=== PATIENT | male | born 1960 | race Caucasian/White ===

== ENCOUNTER 2022-03-31 13:23 | Emergency (ER) | payer MEDICARE, BC, SELFPAY ==
[2022-03-31 13:25] VITALS: BP 115/87; PULSE 58; RESP 16; TEMP 36.6; O2SAT 88; BMI 35.9
--- NOTE | 2022-03-31 13:36 | CRLHL7_ITS ---
For Patients: As a result of the Century Cures Act, medical imaging exams and procedure reports are released immediately into your electronic medical record. You may view this report before your referring provider. If you have questions, please contact your health care provider. Indication : Trauma. Technique : CT of the brain without intravenous contrast. Comparison: None relevant available at the time of interpretation. Findings: No acute blurring of the fernandes-white differentiation. There is no intracranial hemorrhage. The ventricles are proportionate to the cerebral sulci. The 4th ventricle is midline. Basal cisterns appear patent. Suggestion of an extra-axial CSF attenuating possible cyst along the right cerebellum and brainstem. Slight leftward displacement of the cerebellum and brainstem. Mild parenchymal volume loss. There is mild patchy periventricular hypodensity, favored to represent chronic ischemic microvascular disease. There is no intracranial mass, mass effect or midline shift identified. No depressed calvarial fracture. Small parietal superficial scalp contusion near the vertex. Mild paranasal sinus mucosal disease. Impression: 1. No acute intracranial process. 2. Small parietal superficial scalp contusion near the vertex. 3. Mild chronic ischemic microvascular disease. 4. Suggestion of an extra-axial CSF attenuating possible cyst along the right cerebellum and brainstem. Differential considerations include arachnoid cyst and routine nonemergent MRI may be helpful for confirmation. Please note that all CT scans at this facility use dose modulation, iterative reconstruction, and/or weight-based dosing when appropriate to reduce radiation dose to as low as reasonably achievable. Dictated by Paul Owens MD @ 03/31/2022 2:22:36 PM (Electronically Signed)
[2022-03-31 14:01] VITALS: BP 94/60; PULSE 66; RESP 22; O2SAT 94
--- NOTE | 2022-03-31 14:11 | ED.FALL ---
HPI - Fall General Time Seen by Provider: 14:10 Date Seen: 03/31/22 Chief Complaint: Fall/Minor Trauma Stated Complaint: FALL Time Seen by Provider: 03/31/22 13:41 History of Present Illness HPI Narrative: This 61-year-old male comes in by ambulance because of a fall that occurred at home. He states that he had too much alcohol to drink and tripped falling forward. He hit his head on the ground but did not have loss of consciousness. He does not report a headache. Someone called the ambulance because he was unable to get up under his own strength. He does not report any other injury and does not have a headache. Related Data Home Medications Medication Instructions Recorded Confirmed digoxin 250 mcg (0.25 mg) tablet mcg 03/31/22 escitalopram oxalate 10 mg tablet mg 03/31/22 escitalopram oxalate 20 mg tablet mg 03/31/22 lisinopril 10 mg tablet mg 03/31/22 metoprolol succinate 100 mg mg PO 03/31/22 tablet,extended release 24 hr rivaroxaban 20 mg tablet (Xarelto) mg 03/31/22 trazodone 100 mg tablet mg 03/31/22 Allergies Allergy/AdvReac Type Severity Reaction Status Date / Time No Known Drug Allergies Allergy Verified 03/31/22 13:32 Review of Systems Status of ROS: Reports: 10 or more systems reviewed and unremarkable except as noted in History and below Narrative: Constitutional: No fevers, no weight gain or loss. Eyes: No discharge. No vision changes. HENT: No congestion, no sore throat, no ear pain. Cardiovascular: No chest pain, no palpitations. Respiratory: No shortness of breath, no wheezes, no cough. Gastrointestinal: No abdominal pain, no vomiting, no diarrhea. Genitourinary: No dysuria, no hematuria. Musculoskeletal: Normal range of motion. Skin: No rashes, no pruritis. Neurological: No dizziness, weakness, sensory change, speech change. Endo/Heme/Allergies: No bruising or bleeding. No polydipsia. Pysch: no suicidality, no anxiety, no insomnia. He admits to taking recent alcohol excessively. All other systems reviewed and are negative. PFSH PFS Social History Smoking Status: Never smoker Do you use any of these nicotine containing products: None Second hand tobacco smoke exposure: No How often do you have a drink containing alcohol: 2-3 times a week How many standard drinks containing alcohol do you have on a typical day: 3 or 4 How often do you have six or more drinks on one occasion: Monthly AUDIT-C Alcohol total score: 6 Non-prescribed substance use: denies use service: No Exam Narrative: Exam Narrative: Constitutional: Well-developed, well-nourished, no acute distress. HEENT: Mild erythema without abrasion or swelling on the forehead. No other sign of injury. Neck: Normal range of motion. Nontender. Supple. Heart: Regular. No murmurs. Normal rate. Intact distal pulses. Lungs: Clear to auscultation. No chest discomfort. No wheezes, rhonchi, or rales. Abdomen: Normal bowel sounds. Nontender. No rebound tenderness. Genitalia: Deferred. Back: No midline tenderness. Normal range of motion. Extremities: Normal range of motion. Very superficial abrasions on both knees. Skin: Intact. No rash. Warm. No erythema or pallor. Neurologic: No altered sensation. No weakness. Alert and oriented. No facial asymmetry. Tongue is midline. Binder Folder Operator strength is equal bilaterally. [id number] is normal. Leg strength is equal bilaterally. Psychiatric: No suicidality. No anxiety or depression. No insomnia. Nursing notes and vitals signs are reviewed. Const: Vital Signs, click to edit/add: Vital Signs - 24 hr 03/31/22 13:25 03/31/22 14:01 Temperature 97.8 F Pulse Rate [Pulse Oximeter] 66 Pulse Rate [Right Pulse Oximeter] 58 L Respiratory Rate 16 22 Blood Pressure [Ri ght Upper Arm] 115/87 94/60 Pulse Oximetry 88 94 Course Vital Signs Vital signs: Initial Vital Signs Temperature 97.8 F 03/31/22 13:25 Temperature Source Temporal Artery Scan 03/31/22 13:25 Pulse Rate 58 L 03/31/22 13:25 Respiratory Rate 16 03/31/22 13:25 Blood Pressure 115/87 03/31/22 13:25 Blood Pressure Mean 96 03/31/22 13:25 Blood Pressure Position Supine 03/31/22 13:25 Pulse Oximetry 88 03/31/22 13:25 Oxygen Delivery Method 03/31/22 13:25 Vital Signs Temperature 97.8 F 03/31/22 13:25 Pulse Rate 58 L 03/31/22 13:25 Respiratory Rate 16 03/31/22 13:25 Blood Pressure 115/87 03/31/22 13:25 Pulse Oximetry 88 03/31/22 13:25 Temperature 97.8 F 03/31/22 13:25 Pulse Rate 66 03/31/22 14:01 Respiratory Rate 22 03/31/22 14:01 Blood Pressure 94/60 03/31/22 14:01 Pulse Oximetry 94 03/31/22 14:01 MDM - Fall MDM Narrative Medical decision making narrative: This patient comes in by ambulance because he fell and had difficulty getting up. He had excessive amount of alcohol recently. He is on blood thinners. He does not complain of any headache or neck pain. He does not have any injury. His neurologic exam is completely normal. CT scan of the head is ordered and returns with normal results and no sign of intracranial hemorrhage or fracture. There is an incidental finding of some possible increased cerebral spinal fluid in the cerebellar region. This was brought to notice of the patient to at some point could have further evaluation with an MRI. This patient is able to get up and ambulate and wishes to return home. Imaging Data CT scan - head: Radiologist's impression: 1. No acute intracranial process. 2. Small parietal superficial scalp contusion near the vertex. 3. Mild chronic ischemic microvascular disease. 4. Suggestion of an extra-axial CSF attenuating possible cyst along the right cerebellum and brainstem. Differential considerations include arachnoid cyst and routine nonemergent MRI may be helpful for confirmation. Discharge Plan Discharge Clinical Impression: Contusion of forehead Condition: Stable Instructions: Contusion in Adults (ED) Additional Instructions: Forehead contusion from a fall. Increase activity as tolerated. Follow up with MD or return if worsening symptoms happen. Activity Level: Activity as Tolerated Prescriptions: No Action metoprolol succinate 100 mg tablet extended release 24 hr PO 0RF digoxin 250 mcg (0.25 mg) tablet 0RF trazodone 100 mg tablet 0RF lisinopril 10 mg tablet 0RF escitalopram oxalate 10 mg tablet 0RF escitalopram oxalate 20 mg tablet 0RF Xarelto 20 mg tablet 0RF Follow Up/Referrals: Rolf Stauffer MD [Primary Care Provider] - Stand Alone Forms: [employer] Info Instructions
[2022-03-31 14:30] VITALS: RESP 20; O2SAT 92
--- NOTE | 2022-03-31 14:51 | ED.NURSE ---
did not want to be here. got up and walked out of his room. stated that the dr told him he was able to go home if he could walk. states that he feels fine and has called for a ride. is very grateful for us helping him.
== END 2022-03-31 14:50 ==
LOC: ED 14:56
PROVIDERS: Emergency Provider Emergency Medicine Emergency Medical Services; PCP Family Medicine
DX: S00.93XA Contusion of unspecified part of head, initial encounter (principal); W01.10XA Fall on same level from slipping, tripping and stumbling with subsequent striking against unspecified object, initial encounter; F10.10 Alcohol abuse, uncomplicated
CPT/HCPCS: 70450; 93005; 99284; 99285

== ENCOUNTER 2022-09-02 08:53 | Outpatient (CLI) | payer MEDICARE, BC, SELFPAY | END 2022-09-02 08:54 | disposition home or self-care (01) | LOC: AMB 09-09 08:07 | PROVIDERS: PCP Family Medicine; Visit Provider Family Medicine | DX: F10.239 Alcohol dependence with withdrawal, unspecified (principal); S39.92XA Unspecified injury of lower back, initial encounter; W18.30XA Fall on same level, unspecified, initial encounter; Y92.039 Unspecified place in apartment as the place of occurrence of the external cause | CPT/HCPCS: A0425; A0427 ==

== ENCOUNTER 2022-09-02 09:31 | Inpatient (IN) | payer MEDICARE, BC, SELFPAY ==
[2022-09-02] VITALS (49 sets, daily range): BP systolic 102–201; BP diastolic 64–182; PULSE 86–217; RESP 16–24; TEMP 36.1–36.4; O2SAT 80–100; BMI 36.8; BMI 36.3
--- NOTE | 2022-09-02 09:40 | CRLHL7_ITS ---
For Patients: As a result of the Century Cures Act, medical imaging exams and procedure reports are released immediately into your electronic medical record. You may view this report before your referring provider. If you have questions, please contact your health care provider. INDICATION: fall. TECHNIQUE: CT lumbar spine without contrast. COMPARISON: CT chest May 11, 2021 FINDINGS: Vertebrae: The bones are osteopenic. Slight levocurvature of the upper lumbar spine. No new compression deformity is seen. Chronic L1 compression deformity is again demonstrated with slightly more pronounced height loss. Degenerative changes of the SI joints with partial ankylosis on the left. Discs and facet joints: Advanced multilevel intervertebral disc space narrowing facet arthropathy. Partial osseous fusion of the anterior and posterior elements at L2-L3. Extraspinal findings: Prevertebral soft tissues appear unremarkable. Retroperitoneal findings discussed on same day CT abdomen pelvis. IMPRESSION: Chronic L1 compression deformity is again demonstrated with slightly more pronounced height loss. No new compression deformity is identified. Please note that all CT scans at this facility use dose modulation, iterative reconstruction, and/or weight-based dosing when appropriate to reduce radiation dose to as low as reasonably achievable. Dictated by Feng Tamayo MD @ 09/02/2022 11:18:19 AM (Electronically Signed)
--- NOTE | 2022-09-02 09:40 | CRLHL7_ITS ---
For Patients: As a result of the Century Cures Act, medical imaging exams and procedure reports are released immediately into your electronic medical record. You may view this report before your referring provider. If you have questions, please contact your health care provider. INDICATION: fall TECHNIQUE: CT chest, abdomen and pelvis acquired without IV contrast. COMPARISON: CT chest May 11, 2021 FINDINGS: CHEST: Cardiovascular structures: Heart size is mildly enlarged. Thoracic aorta and main pulmonary artery are normal in caliber. Coronary artery and vascular calcifications. Mitral annular calcifications. Mediastinum and amanda: No mass or adenopathy. Patchy opacity at the right lung base favors atelectasis or scarring over consolidation. Lungs and pleura: Opacity at the right lung base favors atelectasis or scarring over consolidation. No effusion or pneumothorax. Chest wall and axilla: No mass or adenopathy. Bones: Left anterior 8th and 9th rib fractures which are new when compared 05/11/2021 but appear at least subacute as there does appear to be some sclerosis which likely indicates healing. Right anterior 4th through 7th rib fractures which appear acute/subacute and are new when compared May 11, 2021. ABDOMEN AND PELVIS: Liver: Unremarkable. Gallbladder and bile ducts: Unremarkable. Pancreas: Unremarkable. Spleen: Unremarkable. Adrenal glands: Unremarkable. Kidneys: Simple renal cyst at the upper pole of the left kidney measuring 3.5 cm. No hydronephrosis. Unremarkable appearing bladder. GI tract: Unremarkable. Vascular structures: Abdominal aorta of normal caliber with mild to moderate atherosclerotic calcifications. Lymph nodes: Unremarkable. Miscellaneous: Unremarkable. No free air or significant free fluid. Pelvic Organs: Unremarkable. Bones: Chronic compression deformity at L1 with increased height loss. Left hip arthroplasty. Subcutaneous soft tissue swelling overlying the left hip which may represent scarring or contusion. IMPRESSION: Left anterior 8th and 9th rib fractures which are new when compared 05/11/2021 but appear at least subacute as there does appear to be some sclerosis which likely indicates healing. Right anterior 4th through 7th rib fractures which appear acute/subacute and are new when compared May 11, 2021. Chronic compression deformity at L1 with increased height loss. Patchy opacity at the right lung base favors atelectasis or scarring over consolidation. Lack of IV contrast limits evaluation of the sonogram parenchyma and vasculature. Given these limitations there is no other evidence of acute injury to the chest, abdomen, or pelvis. Please note that all CT scans at this facility use dose modulation, iterative reconstruction, and/or weight-based dosing when appropriate to reduce radiation dose to as low as reasonably achievable. Dictated by Feng Tamayo MD @ 09/02/2022 11:53:40 AM (Electronically Signed)
--- NOTE | 2022-09-02 09:40 | CRLHL7_ITS ---
For Patients: As a result of the Century Cures Act, medical imaging exams and procedure reports are released immediately into your electronic medical record. You may view this report before your referring provider. If you have questions, please contact your health care provider. INDICATION: Trauma, fall. TECHNIQUE: CT thoracic spine without contrast. COMPARISON: None. FINDINGS: Vertebrae: Alignment is normal. There are no fractures or suspicious bony lesions. Discs and facet joints: Mild multilevel degenerative space narrowing facet arthropathy. Anterior bridging osteophytosis of the lower thoracic spine on the right. Extraspinal findings: Prevertebral soft tissues, visualized airway, and visualized lungs are unremarkable. Low-density lesion at the upper pole of the left kidney measuring 3.5 cm which cannot be characterized as a simple renal cyst on this exam. Recommend ultrasound to further evaluate. IMPRESSION: No evidence of thoracic spine fracture. Mild multilevel joint spondylosis. Low-density lesion at the upper pole of the left kidney measuring 3.5 cm which cannot be characterized as a simple renal cyst on this exam. Recommend ultrasound to further evaluate. Please note that all CT scans at this facility use dose modulation, iterative reconstruction, and/or weight-based dosing when appropriate to reduce radiation dose to as low as reasonably achievable. Dictated by Feng Tamayo MD @ 09/02/2022 11:12:59 AM (Electronically Signed)
--- NOTE | 2022-09-02 09:40 | CRLHL7_ITS ---
For Patients: As a result of the Century Cures Act, medical imaging exams and procedure reports are released immediately into your electronic medical record. You may view this report before your referring provider. If you have questions, please contact your health care provider. INDICATION: Fall TECHNIQUE: Head CT without contrast. COMPARISON: CT head April 22, 2021 FINDINGS: There are mild nonspecific low attenuation white matter changes consistent with chronic microvascular disease. Mild global parenchymal volume loss with ex vacuo dilatation of the ventricles. No sign of intracranial hemorrhage, or midline shift. No extra-axial fluid collection. Again suggested area of an extra-axial CSF attenuating possible cyst along the right cerebellum and brainstem. Slight leftward displacement of the cerebellum and brainstem. The visualized paranasal sinuses and mastoid air cells demonstrate no acute or significant findings. The visualized orbits are grossly unremarkable. No skull fractures. IMPRESSION: No evidence of acute intracranial abnormality on this unenhanced CT. Mild chronic microvascular ischemic changes and mild global parenchymal volume loss. Again suggested area of an extra-axial CSF attenuating possible cyst along the right cerebellum and brainstem. Slight leftward displacement of the cerebellum and brainstem. Findings favors arachnoid cyst and routine non emergent MRI again could be considered to confirm. Please note that all CT scans at this facility use dose modulation, iterative reconstruction, and/or weight-based dosing when appropriate to reduce radiation dose to as low as reasonably achievable. Dictated by Feng Tamayo MD @ 09/02/2022 10:45:51 AM (Electronically Signed)
--- NOTE | 2022-09-02 09:40 | CRLHL7_ITS ---
For Patients: As a result of the Century Cures Act, medical imaging exams and procedure reports are released immediately into your electronic medical record. You may view this report before your referring provider. If you have questions, please contact your health care provider. INDICATION: Fall TECHNIQUE: CT cervical spine without contrast. COMPARISON: None. FINDINGS: Vertebrae: Straightening of expected cervical lordosis. There are no fractures or suspicious bony lesions. Discs and facet joints: There are diffuse degenerative changes in the disc spaces and facet joints. Grade 1 anterolisthesis of C2 on C3 and C5-C6. Mild retrolisthesis of C3 on C4. Extraspinal findings: Paraspinous soft tissues are unremarkable. Scattered secretions noted within the oropharynx and airway. IMPRESSION: 1. No sign of acute cervical spine fracture. 2. Multilevel degenerative spondylosis. Grade 1 anterolisthesis of C2 on C3 and C5 on C6. Mild retrolisthesis of C3 on C4. Please note that all CT scans at this facility use dose modulation, iterative reconstruction, and/or weight-based dosing when appropriate to reduce radiation dose to as low as reasonably achievable. Dictated by Feng Tamayo MD @ 09/02/2022 10:50:42 AM (Electronically Signed)
--- NOTE | 2022-09-02 09:49 | ED.GENADULT ---
HPI - General Adult General Chief complaint: Weakness Stated complaint: Weakness Time Seen by Provider: 09/02/22 09:40 Source: patient Mode of arrival: EMS Limitations: altered mental status History of Present Illness HPI narrative: 61-year-old male coming in today after his ex- called EMS to go get him as she had heard from him for 3 days. He states that he fell and was unable to get up. However patient states this occurred yesterday and not 3 days ago. Patient does have a history of alcohol use disorder, unclear of when his last alcoholic beverage was. Patient states that he feels too weak to stand up on his own right now however in the last 3 days everything has been normal according to him. He has been eating without difficulty. However given his current physical state, I cannot believe that this is true. He is complaining of bilateral rib pain, no other discomfort. Patient does have a blood thinner prescribed to him, unclear if he has been taking his medications or not. Related Data Home Medications Medication Instructions Recorded Confirmed digoxin 250 mcg (0.25 mg) tablet mcg 03/31/22 escitalopram oxalate 10 mg tablet mg 03/31/22 escitalopram oxalate 20 mg tablet mg 03/31/22 lisinopril 10 mg tablet mg 03/31/22 metoprolol succinate 100 mg mg PO 03/31/22 tablet,extended release 24 hr rivaroxaban 20 mg tablet (Xarelto) mg 03/31/22 trazodone 100 mg tablet mg 03/31/22 Allergies Allergy/AdvReac Type Severity Reaction Status Date / Time No Known Drug Allergies Allergy Verified 03/31/22 13:32 Review of Systems Status of ROS: Reports: unobtainable due to mental status [facility] Social History Smoking Status: Never smoker Do you use any of these nicotine containing products: None Second hand tobacco smoke exposure: No How often do you have a drink containing alcohol: 2-3 times a week How many standard drinks containing alcohol do you have on a typical day: 3 or 4 How often do you have six or more drinks on one occasion: Monthly AUDIT-C Alcohol total score: 6 Non-prescribed substance use: denies use service: No Exam Narrative: Exam Narrative: Obese patient in no acute distress. He is cooperative. His speech is slightly slurred. His sentences are not structurally sound. He is covered in stool and urine from his mid torso all the way down to his feet. HEENT: Normocephalic. Pupils are equally round reactive to light. Extraocular muscles are intact. Conjunctivae are moist. Dry mucous membranes with extremely poor oral hygiene. Neck is soft. Cardiovascular: Irregularly irregular. Lungs: Clear to auscultation bilaterally no wheezes rhonchi or rales are appreciated. Patient cannot take deep breaths secondary to discomfort - he has bilateral chest wall discomfort. Abdomen: Soft and nondistended with normal bowel sounds. He does seem uncomfortable although with palpation of the abdomen. Extremities: Bilateral lower extremities are without edema. Weak but present DP and PT pulses. Skin: Patient is covered with ecchymosis and various stages of healing. He has extremely large ecchymosis over the anterior chest wall, large ecchymosis across the abdominal wall and all over his extremities. Back: Entire back is erythematous from the shoulders all the way down to the back of the legs. His coccyx is erythematous, macerated with broken skin. He has no tenderness over the cervical, thoracic or lumbar spine. Const: Vital Signs, click to edit/add: Vital Signs - 24 hr 09/02/22 09:53 09/02/22 10:20 09/02/22 10:14 Temperature 97.1 F L Pulse Rate 112 H Pulse Rate [Right Pulse Oximeter] 122 H 150 H Respiratory Rate 20 24 Blood Pressure Blood Pressure [Ri ght Upper Arm] 201/140 H 140/79 H Pulse Oximetry 80 L 97 98 [facility] Nasal Cannula 09/02/22 10:20 09/02/22 10:21 09/02/22 10:22 Temperature Pulse Rate 102 H 101 H 88 Pulse Rate [Right Pulse Oximeter] Respiratory Rate Blood Pressure 140/79 H 136/91 H Blood Pressure [Ri ght Upper Arm] Pulse Oximetry 98 99 90 [facility] 09/02/22 10:30 09/02/22 10:32 09/02/22 10:40 Temperature Pulse Rate 103 H 125 H 197 H Pulse Rate [Right Pulse Oximeter] Respiratory Rate Blood Pressure 122/97 H Blood Pressure [Ri ght Upper Arm] Pulse Oximetry 92 94 93 [facility] 09/02/22 10:42 09/02/22 10:50 09/02/22 10:54 Temperature Pulse Rate 199 H 129 H Pulse Rate [Right Pulse Oximeter] Respiratory Rate Blood Pressure 119/64 171/136 H Blood Pressure [Ri ght Upper Arm] Pulse Oximetry 89 88 95 Oxygen Delivery Me thod 09/02/22 11:00 09/02/22 11:05 09/02/22 11:10 Temperature Pulse Rate 137 H Pulse Rate [Right Pulse Oximeter] Respiratory Rate Blood Pressure 112/101 H Blood Pressure [Ri ght Upper Arm] Pulse Oximetry 92 100 86 L Oxygen Delivery Me thod 09/02/22 11:19 09/02/22 11:22 09/02/22 11:23 Temperature Pulse Rate 165 H Pulse Rate [Right Pulse Oximeter] Respiratory Rate Blood Pressure 102/69 116/103 H Blood Pressure [Ri ght Upper Arm] Pulse Oximetry 100 Oxygen Delivery Nd thod 09/02/22 11:30 09/02/22 11:32 09/02/22 11:40 Temperature Pulse Rate 141 H Pulse Rate [Right Pulse Oximeter] Respiratory Rate Blood Pressure 186/171 H Blood Pressure [Ri ght Upper Arm] Pulse Oximetry 87 L 91 99 Oxygen Delivery Nd thod 09/02/22 11:42 Temperature Pulse Rate 140 H Pulse Rate [Right Pulse Oximeter] Respiratory Rate Blood Pressure 194/165 H Blood Pressure [Ri ght Upper Arm] Pulse Oximetry 84 L Oxygen Delivery Me thod Course Course Hospital Course: EKG was done, read by me, shows atrial fibrillation with RVR. Given that we have no idea what happened, patient is on blood thinners and it appears that he may have been down for 3 days or longer we did go ahead and balderas scan him. IV was established, IV fluids were started and labs were drawn. White blood cell count was elevated at just above 16,000, hemoglobin was 16. INR is elevated at 1.35. Sodium was high 156, potassium high 5.3, BUN high at 96 and creatinine elevated at 1.8. Lactate was elevated at 3.8. CRP elevated at 5. Total bili elevated at 6.6, direct bili 2.1, AST 104, ALT normal at 40, alk-phos normal. CK elevated at 553. Urinalysis showing ketones, positive nitrites, 2+ bili, trace leukocyte esterase. Of note, urine color was yellow and not dark. Acetaminophen and alcohol levels were negative. COVID, influenza negative. Head and full spine CTs unremarkable for acute pathology. Chest CT showing subacute fractures of 8th and 9th ribs, acute fractures of ribs 4 through 7. Patient received 2 L normal saline while he was in the ER. Vital Signs Vital signs: Initial Vital Signs Pulse Rate 122 H 09/02/22 09:53 Respiratory Rate 20 09/02/22 09:53 Blood Pressure 201/140 H 09/02/22 09:53 Blood Pressure Mean 160 09/02/22 09:53 Blood Pressure Position Supine 09/02/22 09:53 Pulse Oximetry 80 L 09/02/22 09:53 Oxygen Delivery Method 09/02/22 09:53 Vital Signs Pulse Rate 122 H 09/02/22 09:53 Respiratory Rate 20 09/02/22 09:53 Blood Pressure 201/140 H 09/02/22 09:53 Pulse Oximetry 80 L 09/02/22 09:53 Oxygen Delivery Method 09/02/22 09:53 Temperature 97.1 F L 09/02/22 10:20 Pulse Rate 140 H 09/02/22 11:42 Respiratory Rate 24 09/02/22 10:20 Blood Pressure 194/165 H 09/02/22 11:42 Pulse Oximetry 84 L 09/02/22 11:42 Oxygen Delivery Method 09/02/22 10:20 Medical Decision Making MDM Narrative Medical decision making narrative: 61-year-old male found down at home for unclear period of time. Patient presents with signs of dehydration, rhabdomyolysis, AFib with RVR, multiple rib fractures. Patient will be admitted for further management. Lab Data Lab results reviewed: Yes I reviewed the patient's lab results Labs: Lab Results 09/02/22 09/02/22 09/02/22 Range/Units 09:45 09:45 09:45 WBC 16.53 H (4.50-11.00) K/uL RBC 4.57 (4.30-5.90) m/uL Hgb 16.0 (13.5-17.5) gm/dL Hct 49.4 (37.0-53.0) % MCV 108 H (80-100) fL MCH 35 H (26-34) pg MCHC 32 (32-36) gm/dL RDW Coeff of Hortensia 14.6 (11.5-15.5) % Plt Count 203 (140-440) K/uL Neut % (Auto) 84.5 H (42.0-72.0) % Lymph % (Auto) 6.7 L (20-44) % Evangeline % (Auto) 8.1 (0.0-11.0) % Eos % (Auto) 0.2 (0.0-7.0) % Baso % (Auto) 0.1 (0.0-3.0) % Neut # (Auto) 14.00 H (1.7-7.0) K/uL Lymph # (Auto) 1.10 (0.90-2.90) K/uL Evangeline # (Auto) 1.30 H (0.00-0.90) K/UL Eos # (Auto) 0.00 (0.00-0.50) K/uL Baso # (Auto) 0.00 (0.00-0.30) K/uL Abs Immat Gran (auto) 0.10 (0.00-0.30) K/uL Imm/Tot Granulo (auto) 0.4 % INR (0.91-1.10) Sodium 156 H (135-149) mmol/L Potassium 5.3 H (3.6-5.1) mmol/L Chloride 114 (96-114) mmol/L Carbon Dioxide 28 (20-32) mmol/L BUN 96 H (7-30) mg/dL Creatinine 1.8 H (0.5-1.5) mg/dL Estimated Creat Clear 44.19 Estimated GFR 43 ml/min Glucose 121 H (60-115) mg/dL Lactate (0.5-1.9) mmol/L Calcium 8.8 (8.4-10.6) mg/dL Total Bilirubin (0.1-1.5) mg/dL Direct Bilirubin (0.0-0.5) mg/dL AST (12-35) U/L ALT (4-50) U/L Alkaline Phosphatase (40-150) U/L Total Creatine Kinase (54-186) U/L Troponin I (0.01-0.04) ng/mL C-Reactive Protein 5.0 H (0.5-1.0) mg/dL Total Protein (6.0-8.3) g/dL Albumin (3.3-5.0) g/dL Lipase (23-300) U/L Urine Color (Yellow) Urine Appearance (Clear) Urine pH (5.0-8.5) Ur Specific [place] (1.000-1.030) Urine Protein (Negative) Urine Glucose (UA) (Negative) Urine Ketones (Negative) Urine Blood (Negative) Urine Nitrite (Negative) Urine Bilirubin (Negative) Urine Urobilinogen (0.2-1.0) Ur Leukocyte Esterase (Negative) Acetaminophen < 10.0 L (10.0-30.0) ug/mL Ethyl Alcohol (0.01-0.03) % SARS-CoV-2 (PCR) Negative SARS-CoV-2 (Negative) Influenza Type A (PCR) Negative PCR FLU A (Negative) Influenza Type B (PCR) Negative PCR FLU B (Negative) 09/02/22 09/02/22 09/02/22 Range/Units 09:45 09:45 09:45 WBC (4.50-11.00) K/uL RBC (4.30-5.90) m/uL Hgb (13.5-17.5) gm/dL Hct (37.0-53.0) % MCV (80-100) fL MCH (26-34) pg MCHC (32-36) gm/dL RDW Coeff of Hortensia (11.5-15.5) % Plt Count (140-440) K/uL Neut % (Auto) (42.0-72.0) % Lymph % (Auto) (20-44) % Evangeline % (Auto) (0.0-11.0) % Eos % (Auto) (0.0-7.0) % Baso % (Auto) (0.0-3.0) % Neut # (Auto) (1.7-7.0) K/uL Lymph # (Auto) (0.90-2.90) K/uL Evangeline # (Auto) (0.00-0.90) K/UL Eos # (Auto) (0.00-0.50) K/uL Baso # (Auto) (0.00-0.30) K/uL Abs Immat Gran (auto) (0.00-0.30) K/uL Imm/Tot Granulo (auto) % INR 1.35 H (0.91-1.10) Sodium (135-149) mmol/L Potassium (3.6-5.1) mmol/L Chloride (96-114) mmol/L Carbon Dioxide (20-32) mmol/L BUN (7-30) mg/dL Creatinine (0.5-1.5) mg/dL Estimated Creat Clear Estimated GFR ml/min Glucose (60-115) mg/dL Lactate 3.8 H (0.5-1.9) mmol/L Calcium (8.4-10.6) mg/dL Total Bilirubin 6.6 H (0.1-1.5) mg/dL Direct Bilirubin 2.1 H (0.0-0.5) mg/dL AST 104 H (12-35) U/L ALT 40 (4-50) U/L Alkaline Phosphatase 67 (40-150) U/L Total Creatine Kinase (54-186) U/L Troponin I 0.03 (0.01-0.04) ng/mL C-Reactive Protein (0.5-1.0) mg/dL Total Protein 8.6 H (6.0-8.3) g/dL Albumin 4.4 (3.3-5.0) g/dL Lipase 188 (23-300) U/L Urine Color (Yellow) Urine Appearance (Clear) Urine pH (5.0-8.5) Ur Specific [place] (1.000-1.030) Urine Protein (Negative) Urine Glucose (UA) (Negative) Urine Ketones (Negative) Urine Blood (Negative) Urine Nitrite (Negative) Urine Bilirubin (Negative) Urine Urobilinogen (0.2-1.0) Ur Leukocyte Esterase (Negative) Acetaminophen (10.0-30.0) ug/mL Ethyl Alcohol < 0.01 L (0.01-0.03) % SARS-CoV-2 (PCR) (Negative) Influenza Type A (PCR) (Negative) Influenza Type B (PCR) (Negative) 09/02/22 09/02/22 Range/Units 09:55 13:00 WBC (4.50-11.00) K/uL RBC (4.30-5.90) m/uL Hgb (13.5-17.5) gm/dL Hct (37.0-53.0) % MCV (80-100) fL MCH (26-34) pg MCHC (32-36) gm/dL RDW Coeff of Hortensia (11.5-15.5) % Plt Count (140-440) K/uL Neut % (Auto) (42.0-72.0) % Lymph % (Auto) (20-44) % Evangeline % (Auto) (0.0-11.0) % Eos % (Auto) (0.0-7.0) % Baso % (Auto) (0.0-3.0) % Neut # (Auto) (1.7-7.0) K/uL Lymph # (Auto) (0.90-2.90) K/uL Evangeline # (Auto) (0.00-0.90) K/UL Eos # (Auto) (0.00-0.50) K/uL Baso # (Auto) (0.00-0.30) K/uL Abs Immat Gran (auto) (0.00-0.30) K/uL Imm/Tot Granulo (auto) % INR (0.91-1.10) Sodium (135-149) mmol/L Potassium (3.6-5.1) mmol/L Chloride (96-114) mmol/L Carbon Dioxide (20-32) mmol/L BUN (7-30) mg/dL Creatinine (0.5-1.5) mg/dL Estimated Creat Clear Estimated GFR ml/min Glucose (60-115) mg/dL Lactate (0.5-1.9) mmol/L Calcium (8.4-10.6) mg/dL Total Bilirubin (0.1-1.5) mg/dL Direct Bilirubin (0.0-0.5) mg/dL AST (12-35) U/L ALT (4-50) U/L Alkaline Phosphatase (40-150) U/L Total Creatine Kinase 553 H (54-186) U/L Troponin I (0.01-0.04) ng/mL C-Reactive Protein (0.5-1.0) mg/dL Total Protein (6.0-8.3) g/dL Albumin (3.3-5.0) g/dL Lipase (23-300) U/L Urine Color Yellow (Yellow) Urine Appearance Clear (Clear) Urine pH 5.0 (5.0-8.5) Ur Specific [place] 1.020 (1.000-1.030) Urine Protein Negative (Negative) Urine Glucose (UA) Negative (Negative) Urine Ketones 1+ A (Negative) Urine Blood Trace-intact A (Negative) Urine Nitrite Positive A (Negative) Urine Bilirubin 2+ A (Negative) Urine Urobilinogen 4.0 (0.2-1.0) Ur Leukocyte Esterase Trace A (Negative) Acetaminophen (10.0-30.0) ug/mL Ethyl Alcohol (0.01-0.03) % SARS-CoV-2 (PCR) (Negative) Influenza Type A (PCR) (Negative) Influenza Type B (PCR) (Negative) Imaging Data CT scan - head: Attestation: I have reviewed the pertinent imaging results. Radiologist's impression: Head CT without contrast. COMPARISON: CT head April 22, 2021 FINDINGS: There are mild nonspecific low attenuation white matter changes consistent with chronic microvascular disease. Mild global parenchymal volume loss with ex vacuo dilatation of the ventricles. No sign of intracranial hemorrhage, or midline shift. No extra-axial fluid collection. Again suggested area of an extra-axial CSF attenuating possible cyst along the right cerebellum and brainstem. Slight leftward displacement of the cerebellum and brainstem. The visualized paranasal sinuses and mastoid air cells demonstrate no acute or significant findings. The visualized orbits are grossly unremarkable. No skull fractures. IMPRESSION: No evidence of acute intracranial abnormality on this unenhanced CT. Mild chronic microvascular ischemic changes and mild global parenchymal volume loss. Again suggested area of an extra-axial CSF attenuating possible cyst along the right cerebellum and brainstem. Slight leftward displacement of the cerebellum and brainstem. Findings favors arachnoid cyst and routine non emergent MRI again could be considered to confirm. CT cervical spine: Attestation: I have reviewed the pertinent imaging results. Radiologist's impression: CT cervical spine without contrast. COMPARISON: None. FINDINGS: Vertebrae: Straightening of expected cervical lordosis. There are no fractures or suspicious bony lesions. Discs and facet joints: There are diffuse degenerative changes in the disc spaces and facet joints. Grade 1 anterolisthesis of C2 on C3 and C5-C6. Mild retrolisthesis of C3 on C4. Extraspinal findings: Paraspinous soft tissues are unremarkable. Scattered secretions noted within the oropharynx and airway. IMPRESSION: 1. No sign of acute cervical spine fracture. 2. Multilevel degenerative spondylosis. Grade 1 anterolisthesis of C2 on C3 and C5 on C6. Mild retrolisthesis of C3 on C4. CT thoracic spine: Attestation: I have reviewed the pertinent imaging results. Radiologist's impression: CT thoracic spine without contrast. COMPARISON: None. FINDINGS: Vertebrae: Alignment is normal. There are no fractures or suspicious bony lesions. Discs and facet joints: Mild multilevel degenerative space narrowing facet arthropathy. Anterior bridging osteophytosis of the lower thoracic spine on the right. Extraspinal findings: Prevertebral soft tissues, visualized airway, and visualized lungs are unremarkable. Low-density lesion at the upper pole of the left kidney measuring 3.5 cm which cannot be characterized as a simple renal cyst on this exam. Recommend ultrasound to further evaluate. IMPRESSION: No evidence of thoracic spine fracture. Mild multilevel joint spondylosis. Low-density lesion at the upper pole of the left kidney measuring 3.5 cm which cannot be characterized as a simple renal cyst on this exam. Recommend ultrasound to further evaluate. CT lumbar spine: Attestation: I have reviewed the pertinent imaging results. Radiologist's impression: CT lumbar spine without contrast. COMPARISON: CT chest May 11, 2021 FINDINGS: Vertebrae: The bones are osteopenic. Slight levocurvature of the upper lumbar spine. No new compression deformity is seen. Chronic L1 compression deformity is again demonstrated with slightly more pronounced height loss. Degenerative changes of the SI joints with partial ankylosis on the left. Discs and facet joints: Advanced multilevel intervertebral disc space narrowing facet arthropathy. Partial osseous fusion of the anterior and posterior elements at L2-L3. Extraspinal findings: Prevertebral soft tissues appear unremarkable. Retroperitoneal findings discussed on same day CT abdomen pelvis. IMPRESSION: Chronic L1 compression deformity is again demonstrated with slightly more pronounced height loss. No new compression deformity is identified. CT Chest/Ab/Pelvis: Attestation: I have reviewed the pertinent imaging results. Radiologist's impression: CT chest, abdomen and pelvis acquired without IV contrast. COMPARISON: CT chest May 11, 2021 FINDINGS: CHEST: Cardiovascular structures: Heart size is mildly enlarged. Thoracic aorta and main pulmonary artery are normal in caliber. Coronary artery and vascular calcifications. Mitral annular calcifications. Mediastinum and amanda: No mass or adenopathy. Patchy opacity at the right lung base favors atelectasis or scarring over consolidation. Lungs and pleura: Opacity at the right lung base favors atelectasis or scarring over consolidation. No effusion or pneumothorax. Chest wall and axilla: No mass or adenopathy. Bones: Left anterior 8th and 9th rib fractures which are new when compared 05/11/2021 but appear at least subacute as there does appear to be some sclerosis which likely indicates healing. Right anterior 4th through 7th rib fractures which appear acute/subacute and are new when compared May 11, 2021. ABDOMEN AND PELVIS: Liver: Unremarkable. Gallbladder and bile ducts: Unremarkable. Pancreas: Unremarkable. Spleen: Unremarkable. Adrenal glands: Unremarkable. Kidneys: Simple renal cyst at the upper pole of the left kidney measuring 3.5 cm. No hydronephrosis. Unremarkable appearing bladder. GI tract: Unremarkable. Vascular structures: Abdominal aorta of normal caliber with mild to moderate atherosclerotic calcifications. Lymph nodes: Unremarkable. Miscellaneous: Unremarkable. No free air or significant free fluid. Pelvic Organs: Unremarkable. Bones: Chronic compression deformity at L1 with increased height loss. Left hip arthroplasty. Subcutaneous soft tissue swelling overlying the left hip which may represent scarring or contusion. IMPRESSION: Left anterior 8th and 9th rib fractures which are new when compared 05/11/2021 but appear at least subacute as there does appear to be some sclerosis which likely indicates healing. Right anterior 4th through 7th rib fractures which appear acute/subacute and are new when compared May 11, 2021. Chronic compression deformity at L1 with increased height loss. Patchy opacity at the right lung base favors atelectasis or scarring over consolidation. Lack of IV contrast limits evaluation of the sonogram parenchyma and vasculature. Given these limitations there is no other evidence of acute injury to the chest, abdomen, or pelvis. Discharge Plan Discharge Clinical Impression: Rhabdomyolysis, Multiple fractures of ribs, Alcohol use disorder, Weakness, Dehydration, Atrial fibrillation with RVR Patient Disposition: Admitted As Inpatient
--- NOTE | 2022-09-02 09:50 | ED.NURSE ---
Pt to radiology via cart.
[2022-09-02 09:58] LABS: Lactate* 3.8 mmol/L (0.5-1.9)
[2022-09-02 10:25] LABS: Chloride* 114 mmol/L (96-114); Potassium* 5.3 mmol/L (3.6-5.1); Sodium* 156 mmol/L (135-149)
[2022-09-02] MEDS: 0.9 % SODIUM CHLORIDE 1000 ml 1,000 ML IV ×2 (10:25→11:30)
[2022-09-02 10:27] LABS: INR 1.35 (0.91-1.10); Prothrombin Time 17.4 Seconds
[2022-09-02 10:28] LABS: Creatinine* 1.8 mg/dL (0.5-1.5); Est. Creatinine Clearance* 44.19; Estimated Glomerular Filt Rate 43 ml/min
[2022-09-02 10:29] LABS: Blood Urea Nitrogen* 96 mg/dL (7-30); Calcium* 8.8 mg/dL (8.4-10.6); Carbon Dioxide* 28 mmol/L (20-32); Glucose* 121 mg/dL (60-115)
[2022-09-02 10:32] LABS: Acetaminophen* < 10.0 ug/mL (10.0-30.0)
[2022-09-02] MEDS: ACETAMINOPHEN 500 MG TABLET 1000 MG PO (10:35)
[2022-09-02 10:38] LABS: PCR FLU A Negative PCR FLU A (Negative); PCR FLU B Negative PCR FLU B (Negative)
[2022-09-02 10:40] LABS: SARS PCR* Negative SARS-CoV-2 (Negative)
[2022-09-02 10:45] LABS: Basophils Percent Auto 0.1 % (0.0-3.0); Eosinophils Percent Auto 0.2 % (0.0-7.0); Hematocrit 49.4 % (37.0-53.0); Immature Granulocytes Pct Auto 0.4 %; Lymphocytes Percent Auto 6.7 % (20-44); Mean Corpuscular HGB Conc 32 gm/dL (32-36); Mean Corpuscular Hemoglobin 35 pg (26-34); Mean Corpuscular Volume 108 fL (80-100); Monocytes Percent Auto 8.1 % (0.0-11.0); Neutrophils Percent Auto 84.5 % (42.0-72.0); Platelet Count* 203 K/uL (140-440); RDW Coefficient of Variation % 14.6 % (11.5-15.5); Red Blood Count 4.57 m/uL (4.30-5.90); White Blood Count* 16.53 K/uL (4.50-11.00)
[2022-09-02 10:56] LABS: Slide Review Reflex No
[2022-09-02 11:08] LABS: Albumin* 4.4 g/dL (3.3-5.0)
[2022-09-02 11:11] LABS: Aspartate Amino Transferase* 104 U/L (12-35); Bilirubin Direct* 2.1 mg/dL (0.0-0.5); Bilirubin Total* 6.6 mg/dL (0.1-1.5); Total Protein* 8.6 g/dL (6.0-8.3)
[2022-09-02 11:12] LABS: Alanine Aminotransferase* 40 U/L (4-50); Alkaline Phosphatase* 67 U/L (40-150); Lipase* 188 U/L (23-300)
[2022-09-02 11:22] LABS: Ethanol* < 0.01 % (0.01-0.03)
[2022-09-02 11:24] LABS: Troponin I* 0.03 ng/mL (0.01-0.04)
--- NOTE | 2022-09-02 11:30 | ED.NURSE ---
This nurse spent about an hour giving pt a bed bath. Pt had dried stool on his back, buttocks and legs. Pt cleaned and aloe vesta applied to the reddened areas of his back, buttocks and legs, also his upper arms. Has areas of maceration to buttocks
--- NOTE | 2022-09-02 12:17 | W.PC.EDHO ---
Primary Language: Preferred Language: Orientation Status: [] Alert & Oriented [] Slight Confusion [] Known Dx Dementia Transfers By: [] Assist of 1 [] Assist of 2 [] Lift Active Medications Discontinued Medications Generic Name Dose Route Start Last Admin Trade Name Luna PRN Reason Stop Dose Admin Acetaminophen 1,000 mg 09/02/22 10:18 09/02/22 10:35 Acetaminophen 500 Mg Tablet PO 09/02/22 10:19 1,000 mg ONCE ONE Administration Sodium Chloride 1,000 mls @ 1,000 mls/hr 09/02/22 09:45 09/02/22 11:30 0.9 % Sodium Chloride 1000 Ml IV 09/02/22 10:44 Infused .Q1H EILEEN Infusion Sodium Chloride 1,000 mls @ 1,000 mls/hr 09/02/22 10:30 09/02/22 11:30 0.9 % Sodium Chloride 1000 Ml IV 09/02/22 11:29 1,000 mls/hr .Q1H EILEEN Administration Description of Symptoms ED Triage Present Problem Found down in apartment. Unknown down time. ex- Description had been trying to reach pt for the last three days. [facility] had staff check on pt and staff found him on the ground. Hx of ETOH use. States he has not drank in two days. EMS found one empty vodka bottle under nightstand, a half open one on bed and another full bottle nearby. Pt c/o rib pain. Severe redness noted to back side of his body. Brusing on forehead, chest and legs. On xarelto. Lloyd Coma Scale Lloyd coma scale total score 15 Pain Pain Description [Right Chest] Dull, Achy Pain Intensity [Right Chest] 7 Pain Intensity 7 Pain Intensity 7 Pain Scale Used [Right Chest] Numeric (1 - 10) Pain Scale Used Numeric (1 - 10) Pain Scale Used Numeric (1 - 10) IV Insertion/Site Date of IV Line Insertion [ 09/02/22 Left Antecubital] Oxygen Administration Pulse Oximetry 84 Pulse Oximetry 99 Pulse Oximetry 91 Pulse Oximetry 87 Pulse Oximetry 100 Pulse Oximetry 86 Pulse Oximetry 100 Pulse Oximetry 92 Pulse Oximetry 95 Pulse Oximetry 88 Pulse Oximetry 89 Pulse Oximetry 93 Pulse Oximetry 94 Pulse Oximetry 92 Pulse Oximetry 90 Pulse Oximetry 99 Pulse Oximetry 98 Pulse Oximetry 97 Pulse Oximetry 98 Pulse Oximetry 80 Oxygen Delivery Method Nasal Cannula Oxygen Delivery Method Room Air Cardiac Monitoring EKG Method Bedside
[2022-09-02 12:34] LABS: Creatine Kinase* 553 U/L (54-186)
--- NOTE | 2022-09-02 13:01 | ED.NURSE ---
Report to SHASHI Beverly on [place]
[2022-09-02 13:12] LABS: Appearance Urine Clear (Clear); Bilirubin Urine 2+ (Negative); Blood Urine Trace-intact (Negative); Color Urine Yellow (Yellow); Glucose Urine Negative (Negative); Ketones Urine 1+ (Negative); Leukocyte Esterase Urine Trace (Negative); Nitrite Urine Positive (Negative); Protein Urine Negative (Negative)
[2022-09-02 14:09] LABS: RBC Urine 0-2 (0-2); Squamous Epithelial Cell Urine Few (None-Few)
[2022-09-02 14:10] LABS: Amorphous Sediment Urine Few; Bacteria Urine Moderate
[2022-09-02] MEDS: 5 % DEXTROSE/0.45% SOD CHLOR 1,000 ML 250 ML IV (14:40)
[2022-09-02] MEDS: METOPROLOL TARTRATE 50 MG TABLET PO (14:40)
[2022-09-02] MEDS: PHENobarbitaL 32.4 MG TABLET 162 MG PO (14:41)
[2022-09-02 14:44] LABS: Magnesium* 2.2 mg/dL (1.5-2.6)
[2022-09-02] MEDS: MULTIVITAMIN/MINERALS 1 TABLET 1 TAB PO (14:44)
[2022-09-02] MEDS: FOLIC ACID 1 MG TABLET PO (14:45)
[2022-09-02] MEDS: METOPROLOL SUCCINATE (XL) 100 MG TAB PO ×2 (14:45→21:02)
[2022-09-02] MEDS: THIAMINE 100 MG TABLET 250 MG PO ×2 (14:46→21:02)
[2022-09-02 15:10] LABS: Basophils Percent Auto 0.1 % (0.0-3.0); Eosinophils Percent Auto 0.1 % (0.0-7.0); Hematocrit 46.8 % (37.0-53.0); Hemoglobin* 14.9 gm/dL (13.5-17.5); Lymphocytes Percent Auto 8.1 % (20-44); Mean Corpuscular HGB Conc 32 gm/dL (32-36); Mean Corpuscular Hemoglobin 35 pg (26-34); Mean Corpuscular Volume 109 fL (80-100); Monocytes Percent Auto 7.8 % (0.0-11.0); Neutrophils Percent Auto 82.9 % (42.0-72.0); Platelet Count* 179 K/uL (140-440); RDW Coefficient of Variation % 14.8 % (11.5-15.5); Red Blood Count 4.28 m/uL (4.30-5.90); White Blood Count* 15.19 K/uL (4.50-11.00)
[2022-09-02 15:22] LABS: Chloride* 116 mmol/L (96-114); Potassium* 3.8 mmol/L (3.6-5.1); Slide Review Reflex No; Sodium* 157 mmol/L (135-149)
[2022-09-02 15:24] LABS: Creatinine* 1.8 mg/dL (0.5-1.5); Est. Creatinine Clearance* 44.19; Estimated Glomerular Filt Rate 43 ml/min
[2022-09-02 15:25] LABS: Blood Urea Nitrogen* 92 mg/dL (7-30); Calcium* 8.2 mg/dL (8.4-10.6); Carbon Dioxide* 24 mmol/L (20-32); Glucose* 176 mg/dL (60-115)
[2022-09-02 15:37] LABS: Troponin I* 0.03 ng/mL (0.01-0.04)
[2022-09-02 15:43] LABS: Procalcitonin* 0.28 ng/mL (<0.50)
--- NOTE | 2022-09-02 15:46 | PC.NURSE ---
Patient has bruising covering entire body, bruising to right eye. Patient's groin and buttocks reddened and excoriated, stage 2 pressure ulcers to bilateral upper buttocks covered with mepilex, patient's back reddened and excoriated. Patient has tremors throughout body. Reports right rib cage pain. Alert and oriented x 4. A2 to commode with walker and gait belt.
[2022-09-02 16:07] LABS: Digoxin* 0.6 ng/mL (0.8-2.0)
--- NOTE | 2022-09-02 17:20 | PM.IMHP1 ---
Hospitalist- H&P: HPI History of Present Illness Date Seen: 09/02/22 Chief complaint: Weakness Narrative: Jerzy Zuñiga is a 61 year old male with longstanding alcohol abuse admitted through the emergency department after being found down at home. Patient reports that he fell Friday morning. He get up out of bed and was going to the bathroom and hit the floor immediately. He has been on the floor since that time. His ex- was still in daily contact with him found that he did not answer the phone and so she called the neighbor to check on him and he was found on the floor. He was too weak to stand up. He was incontinent of bowel and bladder. He reports he was able to get some food and fluid while he was on the floor. He he thought he is able to move around a little bit. But too weak to stand up. He reports he hit his head when he fell and also the right side of his chest. The right side of his chest as was bothering him most right now. He reports his last alcohol consumption was on Friday. He is reporting a lot of tremulousness at this time. He has been unable to take his medications since Friday night. Review of Systems Narrative: Patient reports he was feeling well when he went to bed Friday night. Reports no other health concerns. [facility] Medical History (Updated 09/02/22 @ 17:42 by Eloy Thorne MD) Alcohol use disorder Anxiety Heart failure Major depression Obstructive sleep apnea Paroxysmal atrial fibrillation Poor balance Pulmonary emboli Thrombus of left atrial appendage Surgical History (Updated 09/02/22 @ 17:27 by Eloy Thorne MD) H/O arthroscopic knee surgery H/O shoulder surgery History of appendectomy S/P total left hip arthroplasty Family History (Updated 09/02/22 @ 17:28 by Eloy Thorne MD) Father Coronary artery disease High blood pressure Mother High blood pressure Stroke Social History (Updated 09/02/22 @ 17:29 by Eloy Thorne MD) Narrative: Patient lives alone at [address]. He is . The person is closest to is his ex- who is in contact with him most every day and provides him rides to go shopping. She is his healthcare power of elementary esl teacher. Neck is closest family is his brother Geraldo. Highest level of school completed/degree received: don't know Smoking Status: Never smoker Do you use any of these nicotine containing products: None Second hand tobacco smoke exposure: No How often do you have a drink containing alcohol: 2-3 times a week Alcohol type: hard liquor Alcohol type details: Vodka How many standard drinks containing alcohol do you have on a typical day: 3 or 4 How often do you have six or more drinks on one occasion: Monthly AUDIT-C Alcohol total score: 6 Non-prescribed substance use: denies use service: No Meds Home Medications and Allergies Home Medications Medication Instructions Recorded Confirmed Type digoxin 250 mcg (0.25 mg) tablet 250 mcg PO DAILY 03/31/22 09/02/22 History escitalopram oxalate 10 mg tablet 10 mg PO DAILY 03/31/22 09/02/22 History escitalopram oxalate 20 mg tablet 20 mg PO DAILY 03/31/22 09/02/22 History lisinopril 10 mg tablet 10 mg PO DAILY 03/31/22 09/02/22 History metoprolol succinate 100 mg 100 mg PO BID 03/31/22 09/02/22 History tablet,extended release 24 hr rivaroxaban 20 mg tablet (Xarelto) 20 mg PO Q24H 03/31/22 09/02/22 History Allergies Allergy/AdvReac Type Severity Reaction Status Date / Time No Known Drug Allergies Allergy Verified 03/31/22 13:32 Exam Narrative: Exam Narrative: Patient is alert, anxious, dyspneic/tachypneic. He is able to give his own history. Head is notable for a bruise over the right forehead. No obvious underlying bony deficit. Eyes are normal. He has some nystagmus with lateral gaze. No facial asymmetry. Oropharynx with dry mucous membranes. Neck is supple without mass or adenopathy. Respirations are clear to auscultation. Cardiovascular: S1, S2, relatively regular tachycardia. No murmur gallop or rub. Abdomen: Bowel sounds active. Abdomen is soft without tenderness or mass. No obvious ascites. External genitalia normal. Extremities are somewhat cool to touch. He does have intact pedal pulses. Sluggish capillary refill. Const: Vital Signs, click to edit/add: Vital Signs - 24 hr 09/02/22 09:53 09/02/22 10:20 09/02/22 10:14 Temperature 97.1 F L Pulse Rate 112 H Pulse Rate [Apical ] Pulse Rate [Right Pulse Oximeter] 122 H 150 H Respiratory Rate 20 24 Blood Pressure Blood Pressure [Le ft Arm] Blood Pressure [Ri ght Upper Arm] 201/140 H 140/79 H Pulse Oximetry 80 L 97 98 [facility] Nasal Cannula 09/02/22 10:20 09/02/22 10:21 09/02/22 10:22 Temperature Pulse Rate 102 H 101 H 88 Pulse Rate [Apical ] Pulse Rate [Right Pulse Oximeter] Respiratory Rate Blood Pressure 140/79 H 136/91 H Blood Pressure [Le ft Arm] Blood Pressure [Ri ght Upper Arm] Pulse Oximetry 98 99 90 Oxygen Delivery Me thod 09/02/22 10:30 09/02/22 10:32 09/02/22 10:40 Temperature Pulse Rate 103 H 125 H 197 H Pulse Rate [Apical ] Pulse Rate [Right Pulse Oximeter] Respiratory Rate Blood Pressure 122/97 H Blood Pressure [Le ft Arm] Blood Pressure [Ri ght Upper Arm] Pulse Oximetry 92 94 93 Oxygen Delivery De thod 09/02/22 10:42 09/02/22 10:50 09/02/22 10:54 Temperature Pulse Rate 199 H 129 H Pulse Rate [Apical ] Pulse Rate [Right Pulse Oximeter] Respiratory Rate Blood Pressure 119/64 171/136 H Blood Pressure [Le ft Arm] Blood Pressure [Ri ght Upper Arm] Pulse Oximetry 89 88 95 [facility] 09/02/22 11:00 09/02/22 11:05 09/02/22 11:10 Temperature Pulse Rate 137 H Pulse Rate [Apical ] Pulse Rate [Right Pulse Oximeter] Respiratory Rate Blood Pressure 112/101 H Blood Pressure [Le ft Arm] Blood Pressure [Ri ght Upper Arm] Pulse Oximetry 92 100 86 L Oxygen Delivery Me thod 09/02/22 11:19 09/02/22 11:22 09/02/22 11:23 Temperature Pulse Rate 165 H Pulse Rate [Apical ] Pulse Rate [Right Pulse Oximeter] Respiratory Rate Blood Pressure 102/69 116/103 H Blood Pressure [Le ft Arm] Blood Pressure [Ri ght Upper Arm] Pulse Oximetry 100 Oxygen Delivery Me thod 09/02/22 11:30 09/02/22 11:32 09/02/22 11:40 Temperature Pulse Rate 141 H Pulse Rate [Apical ] Pulse Rate [Right Pulse Oximeter] Respiratory Rate Blood Pressure 186/171 H Blood Pressure [Le ft Arm] Blood Pressure [Ri ght Upper Arm] Pulse Oximetry 87 L 91 99 [facility] 09/02/22 11:42 09/02/22 11:43 09/02/22 11:50 Temperature Pulse Rate 140 H 138 H 142 H Pulse Rate [Apical ] Pulse Rate [Right Pulse Oximeter] Respiratory Rate Blood Pressure 194/165 H Blood Pressure [Le ft Arm] Blood Pressure [Ri ght Upper Arm] Pulse Oximetry 84 L 91 95 [facility] 09/02/22 11:52 09/02/22 12:00 09/02/22 12:03 Temperature Pulse Rate 142 H 113 H 110 H Pulse Rate [Apical ] Pulse Rate [Right Pulse Oximeter] Respiratory Rate Blood Pressure 175/77 H 171/115 H Blood Pressure [Le ft Arm] Blood Pressure [Ri ght Upper Arm] Pulse Oximetry 92 95 97 [facility] 09/02/22 12:10 09/02/22 12:12 09/02/22 12:20 Temperature Pulse Rate Pulse Rate [Apical ] Pulse Rate [Right Pulse Oximeter] Respiratory Rate Blood Pressure 194/182 H Blood Pressure [Le ft Arm] Blood Pressure [Ri ght Upper Arm] Pulse Oximetry 92 91 90 [facility] 09/02/22 12:22 09/02/22 12:30 09/02/22 12:35 Temperature Pulse Rate 188 H Pulse Rate [Apical ] Pulse Rate [Right Pulse Oximeter] Respiratory Rate Blood Pressure 150/96 H 144/78 H Blood Pressure [Le ft Arm] Blood Pressure [Ri ght Upper Arm] Pulse Oximetry 86 L 82 L 94 [facility] 09/02/22 12:40 09/02/22 12:43 09/02/22 12:50 Temperature Pulse Rate 217 H 204 H 197 H Pulse Rate [Apical ] Pulse Rate [Right Pulse Oximeter] Respiratory Rate Blood Pressure 106/82 Blood Pressure [Le ft Arm] Blood Pressure [Ri ght Upper Arm] Pulse Oximetry 86 L 88 91 [facility] 09/02/22 12:51 09/02/22 13:02 09/02/22 14:55 Temperature Pulse Rate 142 H Pulse Rate [Apical ] Pulse Rate [Right Pulse Oximeter] Respiratory Rate 16 Blood Pressure 120/85 111/74 Blood Pressure [Le ft Arm] Blood Pressure [Ri ght Upper Arm] Pulse Oximetry 95 88 Oxygen Delivery Me thod Room Air 09/02/22 13:41 09/02/22 14:06 09/02/22 14:08 Temperature 96.9 F L Pulse Rate Pulse Rate [Apical ] 127 H 120 H Pulse Rate [Right Pulse Oximeter] Respiratory Rate 20 24 Blood Pressure Blood Pressure [Le ft Arm] 113/83 120/88 Blood Pressure [Ri ght Upper Arm] Pulse Oximetry 91 94 94 Oxygen Delivery Me thod Room Air Room Air 09/02/22 15:00 09/02/22 16:19 09/02/22 16:23 Temperature 96.9 F L Pulse Rate 86 Pulse Rate [Apical ] 150 H 150 H Pulse Rate [Right Pulse Oximeter] Respiratory Rate 24 24 Blood Pressure Blood Pressure [Le ft Arm] 120/88 Blood Pressure [Ri ght Upper Arm] Pulse Oximetry 94 Oxygen Delivery Me thod Room Air 09/02/22 14:07 Temperature Pulse Rate 133 H Pulse Rate [Apical ] Pulse Rate [Right Pulse Oximeter] Respiratory Rate Blood Pressure Blood Pressure [Le ft Arm] Blood Pressure [Ri ght Upper Arm] Pulse Oximetry Oxygen Delivery Me thod Documenting provider has reviewed patient's vital signs: yes Hospitalist - H&P: Result Labs Labs: Short CBC 09/02/22 09/02/22 Range/Units 09:45 14:24 WBC 16.53 H 15.19 H (4.50-11.00) K/uL Hgb 16.0 14.9 (13.5-17.5) gm/dL Hct 49.4 46.8 (37.0-53.0) % Plt Count 203 179 (140-440) K/uL [facility] 09/02/22 09/02/22 09:45 14:24 Sodium 156 H 157 H Potassium 5.3 H 3.8 Chloride 114 116 H Carbon Dioxide 28 24 BUN 96 H 92 H Creatinine 1.8 H 1.8 H Glucose 121 H 176 H Calcium 8.8 8.2 L Cardiac Enzymes 09/02/22 09/02/22 09/02/22 Range/Units 09:45 09:55 14:24 Total Creatine Kinase 553 H (54-186) U/L Troponin I 0.03 0.03 (0.01-0.04) ng/mL Liver Function 09/02/22 Range/Units 09:45 Total Bilirubin 6.6 H (0.1-1.5) mg/dL Direct Bilirubin 2.1 H (0.0-0.5) mg/dL AST 104 H (12-35) U/L ALT 40 (4-50) U/L Alkaline Phosphatase 67 (40-150) U/L Albumin 4.4 (3.3-5.0) g/dL Urine 09/02/22 Range/Units 13:00 Urine Color Yellow (Yellow) Urine Appearance Clear (Clear) Urine pH 5.0 (5.0-8.5) Ur Specific [place] 1.020 (1.000-1.030) Urine Protein Negative (Negative) Urine Glucose (UA) Negative (Negative) ECG Attestation: I personally reviewed and interpreted this ECG as follows: (Atrial fibrillation with a rate of 141. Lateral precordial leads have ST depression and T-wave inversion.) ECG interpretation date: 09/02/[address] Chest/Ab/Pelvis: Radiologist's impression: Left anterior 8th and 9th rib fractures which are new when compared 05/11/2021 but appear at least subacute as there does appear to be some sclerosis which likely indicates healing. Right anterior 4th through 7th rib fractures which appear acute/subacute and are new when compared May 11, 2021. Chronic compression deformity at L1 with increased height loss. Patchy opacity at the right lung base favors atelectasis or scarring over consolidation. Lack of IV contrast limits evaluation of the sonogram parenchyma and vasculature. Given these limitations there is no other evidence of acute injury to the chest, abdomen, or pelvis. Assessment and Plan Assessment and plan (1) SIRS (systemic inflammatory response syndrome): Problem comment: Patient presents with tachypnea, tachycardia, elevated lactate, altered mental status, acute kidney injury. Not with obvious infectious cause of sepsis at this time. Will get rate control of AFib, fluid resuscitation and monitor for infection Status: Acute (2) Atrial fibrillation with RVR: Problem comment: Likely due to absence of rate control medicines for the last 2 to 3 days Status: Acute (3) Alcohol use disorder: Problem comment: Ongoing problem with recurrent hospitalizations though not recently Status: Inactive (4) Acute kidney injury: Problem comment: Due to dehydration and possibly rhabdomyolysis Status: Acute (5) Multiple fractures of ribs: Problem comment: On the right side I believe this is acute because he is exquisitely tender in his right chest. Left side might be subacute. This reflects a risk of falling. Particularly concerned with his anticoagulation in this setting. 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 Status: Acute (10) Heart failure: Problem comment: Monitor with fluid resuscitation Status: Acute Plan Admit to hospital for management of abnormal vital signs, AFib with RVR, dehydration, acute kidney injury, rhabdomyolysis, alcohol withdrawal. Total time spent today is 80 minutes, 50 minutes in coordination of care and discussing with patient other providers ongoing evaluation management.
[2022-09-02] MEDS: 5 % DEXTROSE IN LAC RINGER'S 1,000 ML 125 ML IV (18:55)
[2022-09-02] MEDS: ACETAMINOPHEN 325 MG TABLET 650 MG PO (19:20)
[2022-09-02] MEDS: RIVAROXABAN 10 MG TABLET 20 MG PO (19:21)
[2022-09-02] MEDS: DIGOXIN 250 MCG TABLET PO (19:21)
[2022-09-02] MEDS: ESCITALOPRAM 10 MG TABLET 30 MG PO (19:24)
[2022-09-02] MEDS: POTASSIUM BICARB 25 MEQ EFFERVESCENT TAB PO (20:47)
[2022-09-02] MEDS: PHENobarbitaL 32.4 MG TABLET 64.8 MG PO (21:02)
[2022-09-03] VITALS (12 sets, daily range): BP systolic 98–119; BP diastolic 62–88; PULSE 77–106; RESP 16–20; TEMP 36.1–36.8; O2SAT 92–94
[2022-09-03] MEDS: 5 % DEXTROSE IN LAC RINGER'S 1,000 ML 125 ML IV (02:53)
[2022-09-03] MEDS: ACETAMINOPHEN 325 MG TABLET 650 MG PO ×2 (03:40→20:59)
--- NOTE | 2022-09-03 05:58 | PC.NURSE ---
patient up assist X1 with walker to bedside commode, 3X loose stools this shift. new PIV placed. patient c/o pain in ribs on R side, ice and tylenol per emar. 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 aloe applied to buttocks
[2022-09-03 07:48] LABS: Lactate* 1.4 mmol/L (0.5-1.9)
[2022-09-03 08:22] LABS: Chloride* 112 mmol/L (96-114); Sodium* 146 mmol/L (135-149)
[2022-09-03 08:23] LABS: Potassium* 3.3 mmol/L (3.6-5.1)
[2022-09-03 08:24] LABS: Eosinophils Absolute Auto 0.38 K/uL (0.00-0.50); Eosinophils Percent Auto 3.9 % (0.0-7.0); Hematocrit 39.7 % (37.0-53.0); Hemoglobin* 12.9 gm/dL (13.5-17.5); Immature Granulocytes Abs Auto 0.09 K/uL (0.00-0.30); Immature Granulocytes Pct Auto 0.9 %; Lymphocytes Percent Auto 19.9 % (20-44); Mean Corpuscular HGB Conc 33 gm/dL (32-36); Mean Corpuscular Hemoglobin 36 pg (26-34); Mean Corpuscular Volume 109 fL (80-100); Monocytes Percent Auto 9.3 % (0.0-11.0); Neutrophils Absolute Auto 6.39 K/uL (1.7-7.0); Platelet Count* 128 K/uL (140-440); RDW Coefficient of Variation % 14.8 % (11.5-15.5); Red Blood Count 3.63 m/uL (4.30-5.90); White Blood Count* 9.69 K/uL (4.50-11.00)
[2022-09-03 08:25] LABS: Carbon Dioxide* 29 mmol/L (20-32); Creatinine* 1.6 mg/dL (0.5-1.5); Est. Creatinine Clearance* 49.71; Estimated Glomerular Filt Rate 49 ml/min
[2022-09-03 08:26] LABS: Blood Urea Nitrogen* 84 mg/dL (7-30); Calcium* 7.7 mg/dL (8.4-10.6); Creatine Kinase* 247 U/L (54-186); Glucose* 91 mg/dL (60-115); Slide Review Reflex No
[2022-09-03] MEDS: MULTIVITAMIN/MINERALS 1 TABLET 1 TAB PO (08:48)
[2022-09-03] MEDS: PHENobarbitaL 32.4 MG TABLET PO ×2 (08:48→20:57)
[2022-09-03] MEDS: LACTULOSE 20 GM/30 ML PO (08:48)
[2022-09-03] MEDS: THIAMINE 100 MG TABLET 250 MG PO ×2 (08:48→20:56)
[2022-09-03] MEDS: DIGOXIN 250 MCG TABLET PO (08:49)
[2022-09-03] MEDS: ESCITALOPRAM 10 MG TABLET 30 MG PO (08:50)
[2022-09-03] MEDS: METOPROLOL SUCCINATE (XL) 100 MG TAB PO ×2 (08:50→20:57)
[2022-09-03] MEDS: FOLIC ACID 1 MG TABLET PO (08:50)
--- NOTE | 2022-09-03 15:09 | P.IMPN_ITS ---
Progress Note: A&P Assessment and plan (1) SIRS (systemic inflammatory response syndrome): Problem details: Patient admitted with marked vital signs and laboratory abnormalities which have now all improved. Likely combination of alcohol withdrawal, AFib with RVR. No evidence of sepsis currently Status: Acute (2) Atrial fibrillation with RVR: Problem details: Likely due to absence of rate control medicines for the last 2 to 3 days. Improved with rate control medicines. Consider reducing digoxin dose at discharge. Status: Acute (3) Alcohol use disorder: Problem details: Ongoing problem with recurrent hospitalizations though not recently. Mild alcohol withdrawal so far Status: Inactive (4) Acute kidney injury: Problem details: Due to dehydration and possibly rhabdomyolysis. Monitor. Anticipate improvement. Status: Acute (5) Multiple fractures of ribs: Problem details: On the right side I believe this is acute because he is exquisitely tender in his right chest. Left side might be subacute. Due to his fall at home. Likely chronic risk for falling. Particularly concerned with his anticoagulation in this setting. Patient is however high risk for stroke from AFib and recurrent PE so for now will continue anticoagulation. 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 Status: Acute (10) Heart failure: Problem details: Monitor with fluid resuscitation Status: Acute (11) Cognitive impairment: Problem details: Alton score today was 24/30. I started lactulose because of concern for potential hepatic encephalopathy Status: Acute (12) Hypernatremia: Problem details: Resolved with hydration Status: Acute Plan Continue in-hospital for optimizing rate control of AFib, blood pressure, managing alcohol withdrawal, therapy to make sure he is safe to return home. Time Spent With Patient Total time spent: Total time spent today is 45 minutes, 25 minutes in coordination of care discussing with patient and other providers management of AFib and weakness and rehab Subjective Date Seen: 09/03/22 Interval history: 61-year-old male seen in followup of fall, unable to get up, rhabdomyolysis, weakness, AFib with RVR, alcohol withdrawal. Patient reports feeling much better today. He feels stronger. He has been able to eat and drink. With standby assistance he is able to walk. He is less tremulous. His heart rate is better controlled. Exam Narrative: Exam Narrative: He is alert and appears in no distress. Pleasant and oriented. Eyes normal. Oropharynx normal. Respirations are clear to auscultation. He has still patches of erythema on the skin of his back presumably from lying on the floor after falling on Friday morning. No obvious focal tenderness or mass. Some bruising in his right flank. Cardiovascular: S1, S2, irregularly irregular. Distant heart sounds. Abdomen: Bowel sounds active. Abdomen is soft without significant tenderness or mass. Trace edema in his extremities Const: Vital Signs, click to edit/add: Vital Signs - 24 hr 09/02/22 16:19 09/02/22 16:23 09/02/22 19:21 Temperature 96.9 F L Pulse Rate 86 115 H Pulse Rate [Apical ] 150 H Respiratory Rate 24 Blood Pressure [Le ft Arm] 120/88 Pulse Oximetry 94 Oxygen Delivery Ia thod Room Air 09/02/22 19:00 09/02/22 20:47 09/02/22 23:00 Temperature 97.1 F L 97.6 F 97 F L Pulse Rate Pulse Rate [Apical ] 102 H 99 Respiratory Rate 20 18 Blood Pressure [Le ft Arm] 105/94 H 102/79 Pulse Oximetry 96 98 [facility] 09/02/22 23:00 09/03/22 01:51 09/03/22 03:00 Temperature 98 F Pulse Rate 85 Pulse Rate [Apical ] 100 98 Respiratory Rate 18 Blood Pressure [Le ft Arm] 104/88 Pulse Oximetry 92 [facility] 09/03/22 07:45 09/03/22 07:45 09/03/22 08:49 Temperature 97.1 F L Pulse Rate 97 Pulse Rate [Apical ] 97 Respiratory Rate 16 Blood Pressure [Le ft Arm] 98/62 Pulse Oximetry 92 92 Oxygen Delivery Ia thod Room Air 09/03/22 07:45 09/03/22 07:51 09/03/22 12:37 Temperature 97.1 F L 97.0 F L Pulse Rate 89 Pulse Rate [Apical ] 97 87 Respiratory Rate 16 18 Blood Pressure [Le ft Arm] 98/62 117/74 Pulse Oximetry 92 94 [facility] Room Air 09/03/22 12:37 Temperature 97.0 F L Pulse Rate Pulse Rate [Apical ] 87 Respiratory Rate 18 Blood Pressure [Le ft Arm] 117/74 Pulse Oximetry 94 Oxygen Delivery Me thod Room Air Documenting provider has reviewed patient's vital signs: yes Labs Labs: Laboratory Results - last 24 hr 09/02/22 09/02/22 09/02/22 09:45 14:24 14:24 WBC 15.19 H RBC 4.28 L Hgb 14.9 Hct 46.8 MCV 109 H MCH 35 H MCHC 32 RDW Coeff of [place] 14.8 Plt Count 179 Neut % (Auto) 82.9 H Lymph % (Auto) 8.1 L [place] % (Auto) 7.8 Eos % (Auto) 0.1 Baso % (Auto) 0.1 Neut # (Auto) 12.60 H Lymph # (Auto) 1.20 [place] # (Auto) 1.20 H Eos # (Auto) 0.00 Baso # (Auto) 0.00 Abs Immat Gran (auto) 0.20 Imm/Tot Granulo (auto) 1.0 Sodium Potassium Chloride Carbon Dioxide BUN Creatinine Estimated Creat Clear Estimated GFR Glucose Lactate Calcium Total Creatine Kinase Troponin I Procalcitonin 0.28 Digoxin 0.6 L 09/02/22 09/02/22 09/03/22 14:24 14:24 07:40 WBC RBC Hgb Hct MCV MCH MCHC RDW Coeff of [place] Plt Count Neut % (Auto) Lymph % (Auto) [place] % (Auto) Eos % (Auto) Baso % (Auto) Neut # (Auto) Lymph # (Auto) [place] # (Auto) Eos # (Auto) Baso # (Auto) Abs Immat Gran (auto) Imm/Tot Granulo (auto) Sodium 157 H 146 Potassium 3.8 3.3 L Chloride 116 H 112 Carbon Dioxide 24 29 BUN 92 H 84 H Creatinine 1.8 H 1.6 H Estimated Creat Clear 44.19 49.71 Estimated GFR 43 49 Glucose 176 H 91 Lactate Calcium 8.2 L 7.7 L Total Creatine Kinase 247 H Troponin I 0.03 Procalcitonin Digoxin 09/03/22 09/03/22 07:40 07:40 WBC 9.69 RBC 3.63 L Hgb 12.9 L Hct 39.7 MCV 109 H MCH 36 H MCHC 33 RDW Coeff of [place] 14.8 Plt Count 128 L Neut % (Auto) 66.0 Lymph % (Auto) 19.9 L [place] % (Auto) 9.3 Eos % (Auto) 3.9 Baso % (Auto) 0.0 Neut # (Auto) 6.39 Lymph # (Auto) 1.90 [place] # (Auto) 0.90 Eos # (Auto) 0.38 Baso # (Auto) 0.00 Abs Immat Gran (auto) 0.09 Imm/Tot Granulo (auto) 0.9 Sodium Potassium Chloride Carbon Dioxide BUN Creatinine Estimated Creat Clear Estimated GFR Glucose Lactate 1.4 Calcium Total Creatine Kinase Troponin I Procalcitonin Digoxin
[2022-09-03] MEDS: POTASSIUM BICARB 25 MEQ EFFERVESCENT TAB 50 MEQ PO (15:16)
[2022-09-03] MEDS: RIVAROXABAN 10 MG TABLET 20 MG PO (18:10)
[2022-09-04 03:42] VITALS: BP 134/84; PULSE 73; RESP 20; TEMP 36.6; O2SAT 92
[2022-09-04 03:50] VITALS: BP 134/84; PULSE 73; RESP 20; TEMP 36.6; O2SAT 92
--- NOTE | 2022-09-04 04:38 | PC.NURSE ---
: Pt alert and oriented, using call light, ambulated with Ax1 and walker, vss on ra, tylenol given for rib pain, ciwas 4.
[2022-09-04 07:04] LABS: Basophils Absolute Auto 0.01 K/uL (0.00-0.30); Basophils Percent Auto 0.1 % (0.0-3.0); Eosinophils Absolute Auto 0.35 K/uL (0.00-0.50); Eosinophils Percent Auto 5.2 % (0.0-7.0); Hematocrit 41.6 % (37.0-53.0); Hemoglobin* 13.3 gm/dL (13.5-17.5); Immature Granulocytes Abs Auto 0.05 K/uL (0.00-0.30); Immature Granulocytes Pct Auto 0.7 %; Lymphocytes Absolute Auto 2.12 K/uL (0.90-2.90); Lymphocytes Percent Auto 31.4 % (20-44); Mean Corpuscular HGB Conc 32 gm/dL (32-36); Mean Corpuscular Hemoglobin 35 pg (26-34); Mean Corpuscular Volume 110 fL (80-100); Monocytes Percent Auto 10.5 % (0.0-11.0); Neutrophils Absolute Auto 3.52 K/uL (1.7-7.0); Neutrophils Percent Auto 52.1 % (42.0-72.0); Platelet Count* 109 K/uL (140-440); RDW Coefficient of Variation % 14.9 % (11.5-15.5); Red Blood Count 3.79 m/uL (4.30-5.90); White Blood Count* 6.76 K/uL (4.50-11.00)
[2022-09-04 07:05] LABS: Slide Review Reflex No
[2022-09-04 07:13] LABS: Chloride* 113 mmol/L (96-114); Potassium* 3.3 mmol/L (3.6-5.1); Sodium* 146 mmol/L (135-149)
[2022-09-04 07:14] VITALS: PULSE 95
[2022-09-04 07:16] LABS: Blood Urea Nitrogen* 60 mg/dL (7-30); Carbon Dioxide* 26 mmol/L (20-32); Creatinine* 1.4 mg/dL (0.5-1.5); Est. Creatinine Clearance* 56.81; Estimated Glomerular Filt Rate 58 ml/min; Glucose* 78 mg/dL (60-115)
[2022-09-04 07:17] LABS: Calcium* 7.9 mg/dL (8.4-10.6)
[2022-09-04 07:36] VITALS: BP 136/91; PULSE 88; RESP 18; TEMP 36.3; O2SAT 93
--- NOTE | 2022-09-04 08:00 | PM.DS1 ---
DS: Providers Provider Date Seen: 09/04/22 Date of admission: 09/02/22 14:07 Primary care physician: Rolf Stauffer MD Admitting Clinician: Eloy Thorne MD Attending Physician on discharge: Eloy Thorne MD Date of Discharge: 09/04/22 DS: Diagnosis Discharge Diagnosis (1) Accidental fall: Status: Acute Problem details: Patient fell at home and was too weak to get up. His ex- checked on him because he did not answer his phone. (2) Alcohol use disorder: Status: Acute Problem details: Ongoing problem with recurrent hospitalizations though not recently until this week. (3) Alcohol withdrawal: Status: Acute Problem details: Mild alcohol withdrawal on this admission (4) Hypernatremia: Status: Acute Problem details: Due to lying on the floor unable to get to water. Resolved with hydration (5) Cognitive impairment: Status: Acute Problem details: Plummer score today was 24/30. I started lactulose because of concern for potential hepatic encephalopathy. (6) SIRS (systemic inflammatory response syndrome): Status: Acute Problem details: Patient admitted with marked vital signs and laboratory abnormalities which have now all improved. Likely combination of alcohol withdrawal, AFib with RVR. No evidence of infection identified (7) Acute kidney injury: Status: Acute Problem details: Due to dehydration and possibly rhabdomyolysis. Resolved (8) Atrial fibrillation with RVR: Status: Acute Problem details: Likely due to absence of rate control medicines for the last 2 to 3 days. Improved with rate control medicines. Reduced digoxin dose at discharged (9) Rhabdomyolysis: Status: Acute Problem details: Mild (10) Dehydration: Status: Acute Problem details: Fairly severe with hypernatremia and acute kidney injury. 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 Needs a walker (12) Poor balance: Status: Acute Problem details: Poor balance likely a combination of deconditioning, alcohol abuse, chronic cerebellar affects of alcohol (13) Multiple fractures of ribs: Status: Acute Problem details: On chest imaging he has rib fractures on the right and left sides. Clinically the right rib fractures appear to be acute because he is exquisitely tender there. Left rib fractures are probably subacute. DS: Summary Hospital Course Hospital Course: 61-year-old male admitted to the hospital after being found down at home in unable to get up. His history is that he got up day morning, 5 days ago, to go to the bathroom and fell. He was unable to get up. He was able to roll around on the floor to a limited extent. His ex- attempted to reach him in she was unable to because he would not answer the phone. He reports his phone battery needed charging. On admission he was evaluated with CT imaging of his chest abdomen pelvis, head, spine. No acute injuries identified except for rib fractures. He had altered mental status, tachycardia, hypoxia. There is no serious injury or infection identified cause the symptoms. It was felt that he had AFib with RVR due to not being able take his medications for 2 or 3 days and being dehydrated. He had an elevated CK thought secondary to rhabdomyolysis. This was mild. He had an elevated creatinine and hypernatremia due to dehydration and rhabdomyolysis. He was treated with IV fluids and his laboratory abnormalities resolved. He had no alcohol in his blood on admission. He was felt to be in alcohol withdrawal and started on phenobarbital and alcohol withdrawal protocol. He had relatively quick resolution of alcohol withdrawal signs and symptoms. Rib fractures retreated with acetaminophen and he did not develop any complications. Status at Discharge Cognitive/behavioral status at discharge: Mental status is back to baseline Functional status at discharge: uses cane/walker Overall status at discharge: patient is progressing back to baseline Time Spent with Patient Time attestation: Total time spent providing and/or coordinating discharge services: Time spent: Greater than 30 minutes Exam Narrative: Exam Narrative: He is alert and appears in no distress. Speech is normal. He is oriented to his circumstances. He is not tremulous. Breathing is unlabored. Const: Vital Signs, click to edit/add: Vital Signs - 24 hr 09/03/22 08:49 09/03/22 12:37 09/03/22 12:37 Temperature 97.0 F L 97.0 F L Pulse Rate 97 Pulse Rate [Apical ] 87 87 Respiratory Rate 18 18 Blood Pressure [Le ft Arm] 117/74 117/74 Pulse Oximetry 94 94 Oxygen Delivery Me thod Room Air Room Air 09/03/22 15:26 09/03/22 15:26 09/03/22 15:26 Temperature 97.9 F 97.9 F Pulse Rate Pulse Rate [Apical ] 98 98 Respiratory Rate 20 20 Blood Pressure [Le ft Arm] 117/79 117/79 Pulse Oximetry 93 93 93 Oxygen Delivery Me thod Room Air Room Air 09/03/22 15:54 09/03/22 21:20 09/03/22 21:21 Temperature 98 F 98 F Pulse Rate 106 H Pulse Rate [Apical ] 87 87 Respiratory Rate 20 20 Blood Pressure [Le ft Arm] 119/65 119/65 Pulse Oximetry 92 92 Oxygen Delivery Me thod Room Air Room Air 09/03/22 23:25 09/03/22 23:25 09/03/22 23:28 Temperature 98.2 F 98.2 F Pulse Rate Pulse Rate [Apical ] 77 77 77 Respiratory Rate 20 20 20 Blood Pressure [Le ft Arm] 117/79 117/79 Pulse Oximetry 92 92 Oxygen Delivery Me thod Room Air Room Air 09/04/22 03:42 09/04/22 03:50 09/04/22 07:36 Temperature 98 F 98 F Pulse Rate Pulse Rate [Apical ] 73 73 Respiratory Rate 20 20 Blood Pressure [Le ft Arm] 134/84 134/84 Pulse Oximetry 92 92 93 Oxygen Delivery Me thod Room Air Room Air 09/04/22 07:36 09/04/22 07:36 Temperature 97.3 F L 97.3 F L Pulse Rate Pulse Rate [Apical ] 88 88 Respiratory Rate 18 18 Blood Pressure [Le ft Arm] 136/91 H 136/91 H Pulse Oximetry 93 93 Oxygen Delivery Me thod Room Air Room Air Documenting provider has reviewed patient's vital signs: yes DS: Data Data Completed and Pending Labs on day of discharge: Labs from last 24 hours 09/04/22 09/04/22 09/03/22 05:48 05:48 07:40 WBC 6.76 9.69 RBC 3.79 L 3.63 L Hgb 13.3 L 12.9 L Hct 41.6 39.7 MCV 110 H 109 H MCH 35 H 36 H MCHC 32 33 RDW Coeff of [place]ort[place] 14.9 14.8 Plt Count 109 L 128 L Neut % (Auto) 52.1 66.0 Lymph % (Auto) 31.4 19.9 L [place] % (Auto) 10.5 9.3 Eos % (Auto) 5.2 3.9 Baso % (Auto) 0.1 0.0 Neut # (Auto) 3.52 6.39 Lymph # (Auto) 2.12 1.90 [place] # (Auto) 0.70 0.90 Eos # (Auto) 0.35 0.38 Baso # (Auto) 0.01 0.00 Abs Immat Gran (auto) 0.05 0.09 Imm/Tot Granulo (auto) 0.7 0.9 Sodium 146 Potassium 3.3 L Chloride 113 Carbon Dioxide 26 BUN 60 H Creatinine 1.4 Estimated Creat Clear 56.81 Estimated GFR 58 Glucose 78 Calcium 7.9 L Total Creatine Kinase 09/03/22 07:40 WBC RBC Hgb Hct MCV MCH MCHC RDW Coeff of [place] Plt Count Neut % (Auto) Lymph % (Auto) [place] % (Auto) Eos % (Auto) Baso % (Auto) Neut # (Auto) Lymph # (Auto) [place] # (Auto) Eos # (Auto) Baso # (Auto) Abs Immat Gran (auto) Imm/Tot Granulo (auto) Sodium 146 Potassium 3.3 L Chloride 112 Carbon Dioxide 29 BUN 84 H Creatinine 1.6 H Estimated Creat Clear 49.71 Estimated GFR 49 Glucose 91 Calcium 7.7 L Total Creatine Kinase 247 H Discharge Plan Discharge Disposition: Home, Self-Care Date of Admission: 09/02/22 14:07 Attending Provider on Discharge: Eloy Thorne Primary Care Provider: Rolf Stauffer Condition: Improved Anticipated Discharge Date/Time: 09/04/22 10:00 Discharge Medications: New acetaminophen 325 mg Tablet 650 mg PO Q6H PRNQty: 100 0RF lactulose 20 gram/30 mL Solution 20 g PO DAILY Qty: 900 0RF multivitamin with folic acid [Thera] 400 mcg Tablet 1 tab PO DAILY Qty: 100 0RF Continued metoprolol succinate 100 mg tablet extended release 24 hr 100 mg PO BID lisinopril 10 mg tablet 10 mg PO DAILY escitalopram oxalate 10 mg tablet 10 mg PO DAILY escitalopram oxalate 20 mg tablet 20 mg PO DAILY Xarelto 20 mg tablet 20 mg PO Q24H Changed digoxin 250 mcg (0.25 mg) tablet 125 mcg PO DAILY Qty: 30 0RF Discharge Orders: Discharge Order (Routine); Ordered 09/04/22 Ordered By: Eloy Thorne Additional Instructions: See your doctor next week for recheck of your injuries and medications. Do not drink alcohol. Talk to your physician about getting help with abstinence from alcohol Activity Level: Use Walker Discharge Diet: Regular Follow Up Appointments: Rlof Stauffer MD [Primary Care Provider] - (One week) Forms: addwishth Info Instructions
[2022-09-04] MEDS: POTASSIUM BICARB 25 MEQ EFFERVESCENT TAB 50 MEQ PO (08:31)
[2022-09-04 08:33] VITALS: PULSE 88
[2022-09-04] MEDS: MULTIVITAMIN/MINERALS 1 TABLET 1 TAB PO (08:33)
[2022-09-04] MEDS: METOPROLOL SUCCINATE (XL) 100 MG TAB PO (08:33)
[2022-09-04] MEDS: THIAMINE 100 MG TABLET 250 MG PO (08:33)
[2022-09-04] MEDS: FOLIC ACID 1 MG TABLET PO (08:33)
[2022-09-04] MEDS: DIGOXIN 250 MCG TABLET PO (08:33)
[2022-09-04] MEDS: ESCITALOPRAM 10 MG TABLET 30 MG PO (08:33)
[2022-09-04] MEDS: LACTULOSE 20 GM/30 ML PO (08:34)
--- NOTE | 2022-09-04 12:11 | PC.SOCIAL ---
Addendum entered by CINDY Yuen 09/04/22 16:48: Dandy Tender has reviewed and agrees with this note. Original Note: Discharge plan: Spoke with pt. about transportation home for discharge today. Pt. says he is unable to pay for transport, and that no family is able to transport him home at this time. Pt. will use one-time taxi voucher to return home today. Social work to follow up as needed.
== END 2022-09-04 12:41 | disposition home or self-care (01) | DRG 896 ==
LOC: ED 12:48 → MEDSURG 13:40
PROVIDERS: Admitting Provider Family Medicine; Emergency Provider Family Medicine; PCP Family Medicine; Visit Provider Family Medicine
DX: F10.239 Alcohol dependence with withdrawal, unspecified (principal); G93.41 Metabolic encephalopathy; R65.11 Systemic inflammatory response syndrome (SIRS) of non-infectious origin with acute organ dysfunction; M62.82 Rhabdomyolysis; S22.43XA Multiple fractures of ribs, bilateral, initial encounter for closed fracture; N17.9 Acute kidney failure, unspecified; E87.0 Hyperosmolality and hypernatremia; F10.288 Alcohol dependence with other alcohol-induced disorder; R53.1 Weakness; E86.0 Dehydration; I50.9 Heart failure, unspecified; R26.81 Unsteadiness on feet; W19.XXXA Unspecified fall, initial encounter; Y92.009 Unspecified place in unspecified non-institutional (private) residence as the place of occurrence of the external cause; G47.33 Obstructive sleep apnea (adult) (pediatric); I48.0 Paroxysmal atrial fibrillation; Z79.01 Long term (current) use of anticoagulants; Z86.711 Personal history of pulmonary embolism; F32.9 Major depressive disorder, single episode, unspecified; F41.9 Anxiety disorder, unspecified; Z96.642 Presence of left artificial hip joint
CPT/HCPCS: 36415; 70450; 71250; 72125; 72128; 72131; 74176; 80048; 80076; 80143; 80162; 81001; 82077; 82550; 83605; 83690; 83735; 84145; 84484; 85025; 85610; 86140; 87086; 87631; 93005; 94761; 97116; 97161; 97165; 97530; 97535; 99285; 99291; A9153; A9270; G0390; J7030; S5010

== ENCOUNTER 2022-09-27 10:50 | Outpatient (CLI) | payer MEDICARE, BC, SELFPAY | END 2022-09-27 10:51 | disposition home or self-care (01) | LOC: AMB 13:58 | PROVIDERS: PCP Family Medicine; Visit Provider Family Medicine | DX: M54.9 Dorsalgia, unspecified (principal); R07.89 Other chest pain | CPT/HCPCS: A0425; A0427 ==

== ENCOUNTER 2022-09-27 11:17 | Observation (INO) | payer MEDICARE, BC, SELFPAY ==
[2022-09-27] VITALS (35 sets, daily range): BP systolic 119–168; BP diastolic 54–157; PULSE 90–181; RESP 18–26; TEMP 36.8–37.4; O2SAT 88–98; BMI 38.0; BMI 39.7
--- NOTE | 2022-09-27 11:34 | ED.GENADULT ---
HPI - General Adult General Chief complaint: Back Injury/Pain Stated complaint: Fall Time Seen by Provider: 09/27/22 11:18 History of Present Illness HPI narrative: This 61-year-old male comes in by ambulance stating that he fell and was unable to get up. He has a history of alcohol abuse and states that he did have a large amount of alcohol yesterday. His last drink was around 11:00 p.m. last night, about 12 hours prior to arrival here. He arrives with tremors related to alcohol withdrawal. He states that he fell as he was getting up too quickly from a chair. He denies having any particular injury from the fall but states that he was unable to get up and laid there for quite a while until ambulance came. He has a history of falls and does have a couple rib fractures from a fall that occurred 2 or 3 weeks ago. On arrival he has irregular heart rate and increased heart rate. He is on Xarelto because of paroxysmal atrial fibrillation. He denies having any headache or loss of consciousness. Related Data Home Medications Medication Instructions Recorded Confirmed escitalopram oxalate 10 mg tablet 10 mg PO DAILY 03/31/22 09/02/22 escitalopram oxalate 20 mg tablet 20 mg PO DAILY 03/31/22 09/02/22 lisinopril 10 mg tablet 10 mg PO DAILY 03/31/22 09/02/22 metoprolol succinate 100 mg 100 mg PO BID 03/31/22 09/02/22 tablet,extended release 24 hr rivaroxaban 20 mg tablet (Xarelto) 20 mg PO Q24H 03/31/22 09/02/22 Previous Rx's Medication Instructions Recorded acetaminophen 325 mg tablet 650 mg PO Q6H PRN #100 tabs 09/04/22 digoxin 250 mcg (0.25 mg) tablet 125 mcg PO DAILY #30 tabs 09/04/22 lactulose 20 gram/30 mL oral 20 g (30 mL) PO DAILY #900 mL 09/04/22 solution multivitamin with folic acid 400 1 tab PO DAILY #100 tabs 09/04/22 mcg tablet (Thera) Allergies Allergy/AdvReac Type Severity Reaction Status Date / Time No Known Drug Allergies Allergy Verified 03/31/22 13:32 Review of Systems Status of ROS: Reports: 10 or more systems reviewed and unremarkable except as noted in History and below Narrative: Constitutional: No fevers, no weight gain or loss. Eyes: No discharge. No vision changes. HENT: No congestion, no sore throat, no ear pain. Cardiovascular: No palpitations. Chest: Rib fractures in the right lower anterior ribs from a fall 2-3 weeks ago. Respiratory: No shortness of breath, no wheezes, no cough. Gastrointestinal: No abdominal pain, no vomiting, no diarrhea. Genitourinary: No dysuria, no hematuria. Musculoskeletal: Normal range of motion. Skin: No rashes, no pruritis. Neurological: Tremors due to withdrawal from alcohol. Lightheadedness episodes when getting up too quickly. Endo/Heme/Allergies: No bruising or bleeding. No polydipsia. Pysch: no suicidality. All other systems reviewed and are negative. PFSH PFS Medical History (Updated 09/27/22 @ 14:31 by Pa Mcfarlane MD) Alcohol use disorder Anxiety Cognitive impairment Heart failure Major depression Obstructive sleep apnea Paroxysmal atrial fibrillation Poor balance Pulmonary emboli Thrombus of left atrial appendage Surgical History (Updated 09/02/22 @ 17:27 by Eloy Thorne MD) H/O arthroscopic knee surgery H/O shoulder surgery History of appendectomy S/P total left hip arthroplasty Family History (Updated 09/02/22 @ 17:28 by Eloy Thorne MD) Father Coronary artery disease High blood pressure Mother High blood pressure Stroke Social History (Updated 09/02/22 @ 17:29 by Eloy Thorne MD) Narrative: Patient lives alone at [address] [facility] [address]. He is . The person is closest to is his ex- who is in contact with him most every day and provides him rides to go shopping. She is his healthcare power of wound/ostomy nurse. Neck is closest family is his brother Geraldo. Highest level of school completed/degree received: don't know Smoking Status: Never smoker Do you use any of these nicotine containing products: None Second hand tobacco smoke exposure: No How often do you have a drink containing alcohol: 2-3 times a week Alcohol type: hard liquor Alcohol type details: Vodka How many standard drinks containing alcohol do you have on a typical day: 3 or 4 How often do you have six or more drinks on one occasion: Monthly AUDIT-C Alcohol total score: 6 Non-prescribed substance use: denies use service: No Exam Narrative: Exam Narrative: Constitutional: Well-developed, well-nourished, no acute distress. HEENT: Normocephalic, atraumatic. Neck: Normal range of motion. Nontender. Supple. Heart: Irregular. No murmurs. Tachycardia. Intact distal pulses. Lungs: Clear to auscultation. No chest discomfort. No wheezes, rhonchi, or rales. Abdomen: Normal bowel sounds. Nontender. No rebound tenderness. Genitalia: Deferred. Back: Normal range of motion. Diffuse low back pain. Extremities: Normal range of motion. No injury. Bilateral pedal edema. Skin: Intact. No rash. Warm. No erythema or pallor. Neurologic: No altered sensation. No weakness. Alert and oriented. Tremulous. He is able to raise each leg from the bed. Speech is normal. No facial asymmetry. Psychiatric: No suicidality. No anxiety or depression. No insomnia. Nursing notes and vitals signs are reviewed. Const: Vital Signs, click to edit/add: Vital Signs - 24 hr 09/27/22 11:18 09/27/22 11:33 09/27/22 11:48 Temperature 98.2 F Pulse Rate 111 H 116 H Pulse Rate [Left P ulse Oximeter] Pulse Rate [Right Pulse Oximeter] 110 H Respiratory Rate 22 Blood Pressure 126/54 L Blood Pressure [Ri ght Radial Artery] Blood Pressure [Ri ght Upper Arm] 131/85 Pulse Oximetry 95 92 93 Oxygen Delivery Me thod Room Air 09/27/22 12:00 09/27/22 12:02 09/27/22 12:32 Temperature Pulse Rate 120 H 119 H Pulse Rate [Left P ulse Oximeter] Pulse Rate [Right Pulse Oximeter] Respiratory Rate Blood Pressure 119/89 136/101 H Blood Pressure [Ri ght Radial Artery] Blood Pressure [Ri ght Upper Arm] Pulse Oximetry 92 93 Oxygen Delivery Me thod 09/27/22 13:55 09/27/22 12:47 09/27/22 13:00 Temperature Pulse Rate 124 H 117 H Pulse Rate [Left P ulse Oximeter] 126 H Pulse Rate [Right Pulse Oximeter] Respiratory Rate 26 H Blood Pressure Blood Pressure [Ri ght Radial Artery] 162/120 H Blood Pressure [Ri ght Upper Arm] Pulse Oximetry 94 91 90 Oxygen Delivery Me thod Room Air 09/27/22 13:02 09/27/22 13:30 09/27/22 13:33 Temperature Pulse Rate 129 H 131 H Pulse Rate [Left P ulse Oximeter] Pulse Rate [Right Pulse Oximeter] Respiratory Rate Blood Pressure 120/92 H 139/127 H Blood Pressure [Ri ght Radial Artery] Blood Pressure [Ri ght Upper Arm] Pulse Oximetry 92 95 Oxygen Delivery Me thod 09/27/22 14:01 09/27/22 14:02 09/27/22 14:04 Temperature Pulse Rate 156 H 153 H 181 H Pulse Rate [Left P ulse Oximeter] Pulse Rate [Right Pulse Oximeter] Respiratory Rate Blood Pressure 168/157 H 162/120 H Blood Pressure [Ri ght Radial Artery] Blood Pressure [Ri ght Upper Arm] Pulse Oximetry 94 94 95 Oxygen Delivery Me thod 09/27/22 14:05 Temperature Pulse Rate 121 H Pulse Rate [Left P ulse Oximeter] Pulse Rate [Right Pulse Oximeter] Respiratory Rate 24 Blood Pressure Blood Pressure [Ri ght Radial Artery] Blood Pressure [Ri ght Upper Arm] Pulse Oximetry 94 Oxygen Delivery Me thod Course Vital Signs Vital signs: Initial Vital Signs Temperature 98.2 F 09/27/22 11:18 Temperature Source Temporal Artery Scan 09/27/22 11:18 Pulse Rate 110 H 09/27/22 11:18 Pulse Rhythm 09/27/22 11:18 Respiratory Rate 09/27/22 11:18 Blood Pressure 131/85 09/27/22 11:18 Blood Pressure Mean 100 09/27/22 11:18 Blood Pressure Position Supine 09/27/22 11:18 Pulse Oximetry 95 09/27/22 11:18 Oxygen Delivery Method 09/27/22 11:18 Vital Signs Temperature 98.2 F 09/27/22 11:18 Pulse Rate 110 H 09/27/22 11:18 Respiratory Rate 09/27/22 11:18 Blood Pressure 131/85 09/27/22 11:18 Pulse Oximetry 95 09/27/22 11:18 Oxygen Delivery Method 09/27/22 11:18 Temperature 98.2 F 09/27/22 11:18 Pulse Rate 121 H 09/27/22 14:05 Respiratory Rate 24 09/27/22 14:05 Blood Pressure 162/120 H 09/27/22 14:04 Pulse Oximetry 94 09/27/22 14:05 Oxygen Delivery Method 09/27/22 13:55 Medical Decision Making MDM Narrative Medical decision making narrative: This patient comes in for evaluation of weakness and a fall that occurred. He states that he was unable to get up and ambulance helped him onto a gurney where he came here for evaluation. He was rather tremulous upon arrival from alcohol withdrawal. An IV was established where he received 1 mg of Ativan intravenously. He did received 2 more doses of this to get better control of his alcohol withdrawal related tremors. He is not showing any neurologic deficits. He did not hit his head or have loss of consciousness. He was able to get up and ambulate to the bathroom but this was with assistance and he was rather unsteady. He arrives with tachycardia and irregular heart rate. He does have a history of paroxysmal atrial fibrillation and is taking Xarelto. He states that he did not take his medications this morning. His heart rate was initially in the 120s but as time progressed over a few hours in the emergency department his heart rate increased. He did receive a L of normal saline intravenously. He does not have fever and does not have leukocytosis. He is not showing any signs of sepsis. He did receive his rate controlling and blood pressure medications orally here. This included metoprolol 100 mg, lisinopril 10 mg, and digoxin 125 mcg. He states that he is not interested in detox. He may not be a good candidate anyway for detox with his atrial fibrillation and rapid ventricular response. Some of this tachycardia is related to his missing his medication and some of it to the alcohol withdrawal. I did speak with the hospitalist weatherization technician, Dr. Sanabria, who agrees to bring him into the hospital for further evaluation and treatment. Lab Data Labs: Lab Results 09/27/22 09/27/22 09/27/22 Range/Units 11:40 11:40 11:40 WBC 6.08 (4.50-11.00) K/uL RBC 3.41 L (4.30-5.90) m/uL Hgb 12.0 L (13.5-17.5) gm/dL Hct 36.1 L (37.0-53.0) % MCV 106 H (80-100) fL MCH 35 H (26-34) pg MCHC 33 (32-36) gm/dL RDW Coeff of Hortensia 15.0 (11.5-15.5) % Plt Count 159 (140-440) K/uL Neut % (Auto) 59.6 (42.0-72.0) % Lymph % (Auto) 23.2 (20-44) % [place] % (Auto) 14.6 H (0.0-11.0) % Eos % (Auto) 1.2 (0.0-7.0) % Baso % (Auto) 1.2 (0.0-3.0) % Neut # (Auto) 3.63 (1.7-7.0) K/uL Lymph # (Auto) 1.41 (0.90-2.90) K/uL [place] # (Auto) 0.90 (0.00-0.90) K/UL Eos # (Auto) 0.07 (0.00-0.50) K/uL Baso # (Auto) 0.07 (0.00-0.30) K/uL Sodium 140 (135-149) mmol/L Potassium 3.9 (3.6-5.1) mmol/L Chloride 101 (96-114) mmol/L Carbon Dioxide 30 (20-32) mmol/L BUN 10 (7-30) mg/dL Creatinine 0.5 (0.5-1.5) mg/dL Estimated Creat Clear 153.90 Estimated GFR 117 ml/min Glucose 105 (60-115) mg/dL Calcium 8.1 L (8.4-10.6) mg/dL Total Bilirubin 1.4 (0.1-1.5) mg/dL Direct Bilirubin 0.2 (0.0-0.5) mg/dL AST 64 H (12-35) U/L ALT 31 (4-50) U/L Alkaline Phosphatase 105 (40-150) U/L Total Creatine Kinase 91 (54-186) U/L Total Protein 7.3 (6.0-8.3) g/dL Albumin 3.7 (3.3-5.0) g/dL Ethyl Alcohol 0.09 H (0.01-0.03) % ECG Data Attestation: I personally reviewed and interpreted this ECG as follows: Interpretation: Atrial fibrillation with rapid ventricular response. Rate is 123 beats per minute. There are no specific ST or T-wave abnormalities. Discharge Plan Discharge Clinical Impression: Alcohol withdrawal, Accidental fall, Atrial fibrillation with RVR Patient Disposition: Admitted As Inpatient Condition: Unchanged
[2022-09-27] MEDS: LORazepam 2 MG/ML inj 1 MG IV ×3 (11:44→13:55)
[2022-09-27 11:50] LABS: Basophils Absolute Auto 0.07 K/uL (0.00-0.30); Basophils Percent Auto 1.2 % (0.0-3.0); Eosinophils Absolute Auto 0.07 K/uL (0.00-0.50); Eosinophils Percent Auto 1.2 % (0.0-7.0); Hematocrit 36.1 % (37.0-53.0); Immature Granulocytes Abs Auto 0.01 K/uL (0.00-0.30); Immature Granulocytes Pct Auto 0.2 %; Lymphocytes Absolute Auto 1.41 K/uL (0.90-2.90); Lymphocytes Percent Auto 23.2 % (20-44); Mean Corpuscular HGB Conc 33 gm/dL (32-36); Mean Corpuscular Hemoglobin 35 pg (26-34); Mean Corpuscular Volume 106 fL (80-100); Monocytes Percent Auto 14.6 % (0.0-11.0); Neutrophils Absolute Auto 3.63 K/uL (1.7-7.0); Neutrophils Percent Auto 59.6 % (42.0-72.0); Platelet Count* 159 K/uL (140-440); Red Blood Count 3.41 m/uL (4.30-5.90); White Blood Count* 6.08 K/uL (4.50-11.00)
[2022-09-27 11:54] LABS: Slide Review Reflex No
[2022-09-27 12:06] LABS: Chloride* 101 mmol/L (96-114); Sodium* 140 mmol/L (135-149)
[2022-09-27 12:07] LABS: Potassium* 3.9 mmol/L (3.6-5.1)
[2022-09-27 12:08] LABS: Albumin* 3.7 g/dL (3.3-5.0)
[2022-09-27 12:09] LABS: Blood Urea Nitrogen* 10 mg/dL (7-30); Carbon Dioxide* 30 mmol/L (20-32); Creatine Kinase* 91 U/L (54-186); Creatinine* 0.5 mg/dL (0.5-1.5); Estimated Glomerular Filt Rate 117 ml/min
[2022-09-27 12:10] LABS: Bilirubin Direct* 0.2 mg/dL (0.0-0.5); Bilirubin Total* 1.4 mg/dL (0.1-1.5); Calcium* 8.1 mg/dL (8.4-10.6); Glucose* 105 mg/dL (60-115)
[2022-09-27 12:11] LABS: Alanine Aminotransferase* 31 U/L (4-50); Alkaline Phosphatase* 105 U/L (40-150); Aspartate Amino Transferase* 64 U/L (12-35); Total Protein* 7.3 g/dL (6.0-8.3)
[2022-09-27 12:12] LABS: Ethanol* 0.09 % (0.01-0.03)
[2022-09-27] MEDS: 0.9 % SODIUM CHLORIDE 1000 ml 1,000 ML IV (13:35)
[2022-09-27] MEDS: lisinopriL 10 MG TABLET PO (14:36)
[2022-09-27] MEDS: METOPROLOL SUCCINATE (XL) 100 MG TAB PO ×2 (14:37→20:16)
[2022-09-27] MEDS: DIGOXIN 125 MCG TABLET PO (14:37)
[2022-09-27 15:32] LABS: SARS PCR* Negative SARS-CoV-2 (Negative)
[2022-09-27 16:15] LABS: Lactate* 1.5 mmol/L (0.5-1.9)
--- NOTE | 2022-09-27 16:22 | PM.IMHP1 ---
Hospitalist- H&P: HPI History of Present Illness Time Seen by Provider: 15:00 Date Seen: 09/27/22 Chief complaint: Fall Narrative: Jerzy Zuñiga is a 61 year old man who presented to our emergency department this morning after sustaining a fall in his home and being unable to get up. At baseline the patient has an ataxic gait presumably from longstanding alcohol abuse and is physically deconditioned. He states that yesterday he did drink large volumes of alcohol with the deborah. He last had an alcohol drink around 11:00 p.m. yesterday, about 12 hours prior to arrival in the emergency department for assessment. He states that he was tired and wanted to go to bed sometime this morning, so he attempted to stand up and then felt suddenly dizzy and fell to the floor. He does not believe that he hurt himself from this fall. He does not believe he lost consciousness or struck his head. Has no other pains from this fall. He states he laid on the floor for about 5 hours. He states he pulled the blanket down at some point time and his phone happened to be on the blanket. Once he got a hold of his phone he was able to call 911 and obtain EMS help, including ultimately bringing him to the emergency department for assessment. Patient also known to have systolic heart failure with last transthoracic echocardiogram that I can find a report of in October of 2013 measuring his ejection fraction at 25%. His primary care physician has urged him to repeat this test but the patient has consistently declined. He claims that he does take all of his medications ?religiously.? He also claims that he has medical disability on the basis of his cardiac condition. Review of Systems Status of ROS: Reports: 10 or more systems reviewed and unremarkable except as noted in History and below Narrative: Denies any recent illness. Denies fevers, rigors, diaphoresis. Denies constipation or diarrhea. Denies dysuria, hematuria, urgency, or frequency. Denies any new rashes. Denies cough or facial pain. Denies chest heaviness, pressure, tightness, or pain. Denies palpitations or fluttering sensation of chest. Denies dyspnea at rest, paroxysmal nocturnal dyspnea, or orthopnea. Denies edema. Acknowledges frequently dealing with a sense of orthostasis. Denies vertigo. In fact on 02 September 2022 patient was also assessed in the emergency department at [facility], having been found on the floor in his house and too weak to get up. He may have been on the floor for several hours to 2 days, it is unclear. Did have mild rhabdomyolysis at that time. Was found to have subacute rib fractures in the left anterior 8th and 9th ribs, and also was found to have acute rib fractures in the right anterior 4th through 7th ribs, plus a chronic L1 compression vertebral body fracture. Patient states he still has discomfort in the right side of his chest. The bruising that he had previously sustained is resolving. He tells me does not drink alcohol nearly as much as he has in the distant past. He tells me that he does not drink alcohol daily anymore, that maybe he might drink alcohol 2-3 times per week at the most. Historically he has had long periods of abstinence. Historically he has made concerted efforts to remain abstinent including participation in AA. He has not participated in AA for a long period of time. He states he would like to try to achieve long-term abstinence once again. He tells me that he tries to walk daily for his health. He also tells me he tries to watch his carbohydrate intake. With these efforts he tells me he has lost about 50 lb over the last year or so. Denies night sweats. Denies any acute neurologic changes. Denies suicidal or homicidal thoughts or ideations. He designates his ex-, Marge Zuñiga, as his power of business attorney for health should that be required, her phone number being [phone]. He requests full resuscitation efforts in the event of cardiopulmonary demise, but does not wish to be kept alive in a persistent vegetative state. [facility] Medical History (Updated 09/27/22 @ 17:13 by Stuart Sanabria MD) Alcohol use disorder Anxiety Cognitive impairment Essential hypertension Heart failure Macrocytic anemia Major depression Morbid obesity Obstructive sleep apnea Paroxysmal atrial fibrillation Poor balance Pulmonary emboli Recurrent major depressive disorder in partial remission Thrombus of left atrial appendage Surgical History H/O arthroscopic knee surgery H/O shoulder surgery History of appendectomy S/P total left hip arthroplasty Family History Father Coronary artery disease High blood pressure Mother High blood pressure Stroke Social History Narrative: Patient lives alone at [address]. He is . The person is closest to is his ex- who is in contact with him most every day and provides him rides to go shopping. She is his healthcare power of business attorney. Neck is closest family is his brother Geraldo. Highest level of school completed/degree received: don't know Smoking Status: Never smoker Do you use any of these nicotine containing products: None Second hand tobacco smoke exposure: No How often do you have a drink containing alcohol: 2-3 times a week Alcohol type: hard liquor Alcohol type details: Vodka How many standard drinks containing alcohol do you have on a typical day: 3 or 4 How often do you have six or more drinks on one occasion: Monthly AUDIT-C Alcohol total score: 6 Non-prescribed substance use: denies use service: No Meds Home Medications and Allergies Home Medications Medication Instructions Recorded Confirmed Type escitalopram oxalate 10 mg tablet 10 mg PO DAILY 03/31/22 09/02/22 History escitalopram oxalate 20 mg tablet 20 mg PO DAILY 03/31/22 09/02/22 History lisinopril 10 mg tablet 10 mg PO DAILY 03/31/22 09/02/22 History metoprolol succinate 100 mg 100 mg PO BID 03/31/22 09/02/22 History tablet,extended release 24 hr rivaroxaban 20 mg tablet (Xarelto) 20 mg PO Q24H 03/31/22 09/02/22 History Allergies Allergy/AdvReac Type Severity Reaction Status Date / Time No Known Drug Allergies Allergy Verified 03/31/22 13:32 Exam Narrative: Exam Narrative: No acute distress. Appears comfortable. Appears tired. Alert, oriented to self, place, time, situation. Appears distraught, nevertheless articulate, cooperative, friendly. Mood and affect are congruent. Skin is dry, with exophytic scaling. Has ecchymosis on right side of chest which is old in color, yellow to purple. No new bruises. No lacerations or abrasions. Vision and hearing are grossly normal. External auditory canals are clear. Midline nasal septum. Very dry buccal mucosa. Dentition in fair repair. Neck is full. No obvious JVD or hepatojugular reflux with head of bed elevated at 45?. No carotid bruits. Lungs clear to auscultation, without wheezing, rhonchi, or rale. No CVA discomfort. Barrel-shaped chest. Tachycardic with heart rate about 100 when I see him. Irregular rhythm. No obvious murmur, gallop, or rub. Heart tones are distant. Abdomen is obese, with active bowel sounds. Generally soft. Mild discomfort in the right upper quadrant, but no rebound or guarding. Moves all 4 extremities. No focal motor neurologic deficits. Is tremulous. I do not have him stand. No lower extremity edema. Palpable pulses in upper and lower extremities. Const: Vital Signs, click to edit/add: Vital Signs - 24 hr 09/27/22 11:18 09/27/22 11:33 09/27/22 11:48 Temperature 98.2 F Pulse Rate 111 H 116 H Pulse Rate [Left P ulse Oximeter] Pulse Rate [Right Pulse Oximeter] 110 H Respiratory Rate 22 Blood Pressure 126/54 L Blood Pressure [Ri ght Radial Artery] Blood Pressure [Ri ght Upper Arm] 131/85 Pulse Oximetry 95 92 93 Oxygen Delivery Me thod Room Air 09/27/22 12:00 09/27/22 12:02 09/27/22 12:32 Temperature Pulse Rate 120 H 119 H Pulse Rate [Left P ulse Oximeter] Pulse Rate [Right Pulse Oximeter] Respiratory Rate Blood Pressure 119/89 136/101 H Blood Pressure [Ri ght Radial Artery] Blood Pressure [Ri ght Upper Arm] Pulse Oximetry 92 93 Oxygen Delivery Me thod 09/27/22 13:55 09/27/22 12:47 09/27/22 13:00 Temperature Pulse Rate 124 H 117 H Pulse Rate [Left P ulse Oximeter] 126 H Pulse Rate [Right Pulse Oximeter] Respiratory Rate 26 H Blood Pressure Blood Pressure [Ri ght Radial Artery] 162/120 H Blood Pressure [Ri ght Upper Arm] Pulse Oximetry 94 91 90 Oxygen Delivery Me thod Room Air 09/27/22 13:02 09/27/22 13:30 09/27/22 13:33 Temperature Pulse Rate 129 H 131 H Pulse Rate [Left P ulse Oximeter] Pulse Rate [Right Pulse Oximeter] Respiratory Rate Blood Pressure 120/92 H 139/127 H Blood Pressure [Ri ght Radial Artery] Blood Pressure [Ri ght Upper Arm] Pulse Oximetry 92 95 Oxygen Delivery Me thod 09/27/22 14:01 09/27/22 14:02 09/27/22 14:04 Temperature Pulse Rate 156 H 153 H 181 H Pulse Rate [Left P ulse Oximeter] Pulse Rate [Right Pulse Oximeter] Respiratory Rate Blood Pressure 168/157 H 162/120 H Blood Pressure [Ri ght Radial Artery] Blood Pressure [Ri ght Upper Arm] Pulse Oximetry 94 94 95 Oxygen Delivery Me thod 09/27/22 14:05 09/27/22 14:30 09/27/22 14:32 Temperature Pulse Rate 121 H 127 H 150 H Pulse Rate [Left P ulse Oximeter] Pulse Rate [Right Pulse Oximeter] Respiratory Rate 24 Blood Pressure 157/102 H Blood Pressure [Ri ght Radial Artery] Blood Pressure [Ri ght Upper Arm] Pulse Oximetry 94 92 91 Oxygen Delivery Me thod 09/27/22 15:00 09/27/22 15:02 09/27/22 15:30 Temperature Pulse Rate 143 H 140 H 139 H Pulse Rate [Left P ulse Oximeter] Pulse Rate [Right Pulse Oximeter] Respiratory Rate Blood Pressure 144/100 H Blood Pressure [Ri ght Radial Artery] Blood Pressure [Ri ght Upper Arm] Pulse Oximetry 88 89 88 Oxygen Delivery Ma thod 09/27/22 15:33 Temperature Pulse Rate 108 H Pulse Rate [Left P ulse Oximeter] Pulse Rate [Right Pulse Oximeter] Respiratory Rate Blood Pressure 147/137 H Blood Pressure [Ri ght Radial Artery] Blood Pressure [Ri ght Upper Arm] Pulse Oximetry 93 Oxygen Delivery Me thod Documenting provider has reviewed patient's vital signs: yes Hospitalist - H&P: Result Labs Labs: Short CBC 09/27/22 Range/Units 11:40 WBC 6.08 (4.50-11.00) K/uL Hgb 12.0 L (13.5-17.5) gm/dL Hct 36.1 L (37.0-53.0) % Plt Count 159 (140-440) K/uL BMP 09/27/22 11:40 Sodium 140 Potassium 3.9 Chloride 101 Carbon Dioxide 30 BUN 10 Creatinine 0.5 Glucose 105 Calcium 8.1 L Cardiac Enzymes 09/27/22 Range/Units 11:40 Total Creatine Kinase 91 (54-186) U/L Liver Function 09/27/22 Range/Units 11:40 Total Bilirubin 1.4 (0.1-1.5) mg/dL Direct Bilirubin 0.2 (0.0-0.5) mg/dL AST 64 H (12-35) U/L ALT 31 (4-50) U/L Alkaline Phosphatase 105 (40-150) U/L Albumin 3.7 (3.3-5.0) g/dL ECG ECG interpretation date: 09/27/22 ECG interpretation time: 15:30 Prior ECG tracings: not available for review Interpretation: Atrial fibrillation with RVR Assessment and Plan Assessment and plan (1) Fall: Status: Acute Assessment and Plan: 1. Physical and occupational therapy consultation (2) Orthostasis: Status: Acute Assessment and Plan: 1. IV fluids 2. Monitor orthostatic blood pressures and pulses 3. Transthoracic echocardiogram (3) Moderate dehydration: Status: Acute Assessment and Plan: 1. IV fluid (4) Acute alcohol intoxication: Status: Acute (5) Alcohol withdrawal: Problem comment: Mild alcohol withdrawal on this admission Status: Acute Assessment and Plan: 1. CIWA driven alcohol withdrawal protocol (6) Alcohol use disorder: Problem comment: Ongoing problem with recurrent hospitalizations though not recently until this week. Status: Acute Assessment and Plan: 1. Began discussion with patient regarding long-term sobriety goals and means of achieving this (7) Atrial fibrillation with RVR: Problem comment: Likely due impart to absence of rate control medicines. Status: Acute Assessment and Plan: 1. IV fluid 2. 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 Needs a walker Status: Acute Assessment and Plan: 1. Initiate physical and occupational therapy consultations and recommendations (9) Poor balance: Problem comment: Poor balance likely a combination of deconditioning, alcohol abuse, chronic cerebellar affects of alcohol Status: Acute Assessment and Plan: 1. Check vitamin B12 and folate levels 2. Initiate thiamin therapy orally (10) Paroxysmal atrial fibrillation: Problem comment: h/o recurrent A Fib s/p ablation and on amiodarone 07/2011. Now anticoagulated with apixaban and rate controlled with metoprolol succinate. Status: Acute (11) Cardiomyopathy: Problem comment: 10/2013 ECHO EF 25%, presumed related to alcohol use and atrial fibrillation and hypertension - patient has declined follow-up recommendations per his primary care physician Status: Acute Assessment and Plan: 1. Telemetry 2. Serial electrocardiograms 3. Serial troponin I's 4. Transthoracic echocardiogram (12) Obstructive sleep apnea: Problem comment: On home CPAP Status: Acute Assessment and Plan: 1. Home CPAP (13) Morbid obesity: Status: Acute (14) Macrocytic anemia: Problem comment: Likely related to marrow toxicity from alcohol consumption Status: Acute Assessment and Plan: 1. Reviewed pathophysiology with patient. 2. Check vitamin B12 and folate levels 3. Monitor (15) Alcoholic hepatitis: Status: Acute Assessment and Plan: 1. Discussed pathophysiology with patient 2. Monitor (16) Bacteriuria: Problem comment: Possible UTI with positive nitrite and leukocyte esterase Status: Acute Assessment and Plan: 1. Ordered urine culture 2. Ordered blood culture 3. Will empirically initiate ceftriaxone pending culture results Plan 1. Reviewed the above with the patient. 2. Answered the patient's questions to satisfaction. 3. Initiated discussion with patient about his long-term goals of care and life and living. 4. Patient agreeable to above stated plans and recommendations
[2022-09-27 16:44] LABS: Troponin I* 0.02 ng/mL (0.01-0.04)
[2022-09-27 17:34] LABS: Digoxin* < 0.4 ng/mL (0.8-2.0)
[2022-09-27] MEDS: THIAMINE 100 MG TABLET PO (18:17)
[2022-09-27] MEDS: RIVAROXABAN 10 MG TABLET 20 MG PO (18:18)
[2022-09-27] MEDS: LORazepam 1 MG TABLET PO ×2 (18:18→20:21)
--- NOTE | 2022-09-27 19:16 | PC.NURSE ---
TELE SHOWING AFIB WITH RATE 80-110'S AND INCREASES TO 120'S WITH ACTIVITY. SOB WITH EXERTION. SEVERE TREMORS AND PATIENT THOUGHT DATE WAS 09/19. ORIENTED TO SELF AND PLACE. PATIENT REPORTS HEADACHE AND FEELING ANXIOUS. STATES ATIVAN HELPS. INITIAL CIWA ON WAS 17 AND ATIVAN 2MG PO ADMINISTERED. UP WITH A1-2, WALKER AND GAIT BELT. SCATTERED BRUISING TO LEGS, ARMS AND TORSO. SCABBED, HEALING WOUNDS TO BILATERAL BUTTOCKS. COVERED WITH MEPILEX.
[2022-09-27] MEDS: cefTRIAXone 1 GM in 0.9 % SODIUM CHLORIDE Mini-bag 100 ML IVPB (19:18)
[2022-09-27] MEDS: SODIUM CHLORIDE 0.9 % (FLUSH) 10 ML SYRINGE 5 ML IVF (19:19)
[2022-09-27 19:20] LABS: Appearance Urine Clear (Clear); Bilirubin Urine Negative (Negative); Blood Urine Negative (Negative); Color Urine Brown (Yellow); Glucose Urine Negative (Negative); Ketones Urine Negative (Negative); Leukocyte Esterase Urine Negative (Negative); Nitrite Urine Negative (Negative); Protein Urine Trace (Negative); Specific Gravity Urine 1.015 (1.000-1.030); pH Urine 8.5 (5.0-8.5)
[2022-09-27 19:29] LABS: RBC Urine 0-2 (0-2); WBC Urine 0-2 (0-5)
[2022-09-27] MEDS: ACETAMINOPHEN 325 MG TABLET 650 MG PO (20:15)
[2022-09-27 21:15] LABS: Vitamin B12* 415 pg/mL (243-894)
[2022-09-28] VITALS (14 sets, daily range): BP systolic 123–150; BP diastolic 74–104; PULSE 73–124; RESP 20–22; TEMP 36.6–37.2; O2SAT 93–96
[2022-09-28 06:50] LABS: Hematocrit 34.9 % (37.0-53.0); Hemoglobin* 11.6 gm/dL (13.5-17.5); Mean Corpuscular HGB Conc 33 gm/dL (32-36); Mean Corpuscular Hemoglobin 36 pg (26-34); Mean Corpuscular Volume 107 fL (80-100); Platelet Count* 144 K/uL (140-440); Red Blood Count 3.27 m/uL (4.30-5.90); White Blood Count* 6.32 K/uL (4.50-11.00)
[2022-09-28 06:51] LABS: HCO3 VBG 33 mmol/L (21-28); Lactate* 0.8 mmol/L (0.5-1.9); PCO2 VBG 44 mmHG (40-50); pH VBG 7.486 (7.32-7.43)
[2022-09-28 06:52] LABS: Slide Review Reflex No
[2022-09-28 07:21] LABS: Albumin* 3.4 g/dL (3.3-5.0)
[2022-09-28 07:22] LABS: Chloride* 99 mmol/L (96-114); Potassium* 3.9 mmol/L (3.6-5.1); Sodium* 136 mmol/L (135-149)
[2022-09-28 07:24] LABS: Aspartate Amino Transferase* 56 U/L (12-35); Bilirubin Total* 3.1 mg/dL (0.1-1.5); Carbon Dioxide* 31 mmol/L (20-32); Creatinine* 0.6 mg/dL (0.5-1.5); Est. Creatinine Clearance* 128.25; Estimated Glomerular Filt Rate 111 ml/min; Total Protein* 7.1 g/dL (6.0-8.3)
[2022-09-28 07:25] LABS: Alanine Aminotransferase* 29 U/L (4-50); Alkaline Phosphatase* 90 U/L (40-150); Blood Urea Nitrogen* 13 mg/dL (7-30); Calcium* 7.7 mg/dL (8.4-10.6); Glucose* 90 mg/dL (60-115); Magnesium* 1.2 mg/dL (1.5-2.6); Phosphorus* 4.2 mg/dL (2.5-4.5)
[2022-09-28 07:34] LABS: Troponin I* 0.02 ng/mL (0.01-0.04)
[2022-09-28 07:37] LABS: NT Pro B Type NatriureticPept* 2700 pg/mL
[2022-09-28] MEDS: DIGOXIN 125 MCG TABLET PO (08:40)
[2022-09-28] MEDS: MULTIVITAMIN/MINERALS 1 TABLET 1 TAB PO (08:40)
[2022-09-28] MEDS: METOPROLOL SUCCINATE (XL) 100 MG TAB PO ×2 (08:41→21:03)
[2022-09-28] MEDS: FOLIC ACID 1 MG TABLET PO (08:41)
[2022-09-28] MEDS: LACTULOSE 20 GM/30 ML PO (08:41)
[2022-09-28] MEDS: SODIUM CHLORIDE 0.9 % (FLUSH) 10 ML SYRINGE 5 ML IVF ×2 (08:41→21:04)
[2022-09-28] MEDS: lisinopriL 10 MG TABLET PO (08:41)
[2022-09-28] MEDS: ESCITALOPRAM 10 MG TABLET 30 MG PO (08:41)
[2022-09-28] MEDS: PHENobarbitaL 260 MG in 0.9 % SODIUM CHLORIDE 100 ml 100 ML 208 MG IVPB (11:03)
[2022-09-28] MEDS: THIAMINE 250 MG in 0.9 % SODIUM CHLORIDE 100 ml 100 ML 102.5 MG IVPB ×2 (14:58→21:02)
[2022-09-28] MEDS: GABAPENTIN 300 MG CAPSULE PO ×2 (14:59→21:03)
--- NOTE | 2022-09-28 15:10 | PC.NURSE ---
Shift Note [id number]: Phenobarbitol IVPB, pt sleeping and SpO2 dipped to 78%. 2L/O2 via NC to maintain sats 90-93% while asleep. Weaned to RA when awake. CIWA= 5. Moves well to BR with assist x1 with walker and GB.
--- NOTE | 2022-09-28 15:17 | P.IMPN_ITS ---
Progress Note: A&P Assessment and plan (1) Atrial fibrillation with RVR: Problem details: Much improved. Rate is controlled when on his prescribed medications. Status: Acute (2) Alcohol withdrawal: Problem details: Mild to moderate. Patient is coherent today. We are starting infusion phenobarbital this morning. Continue CIWA Ativan scoring and dosing. Status: Acute (3) Fall: Problem details: No obvious injury. Poor self-care. Intoxicated Status: Acute (4) Alcohol use disorder: Problem details: Ongoing problem with recurrent hospitalizations though not recently until this week. Status: Acute (5) Bacteriuria: Problem details: Possible UTI with positive nitrite and leukocyte esterase, treating with ceftriaxone. Awaiting cultures and sensitivities Status: Acute (6) Cardiomyopathy: Problem details: 10/2013 ECHO EF 25%, presumed related to alcohol use and atrial fibrillation and hypertension - patient has declined follow-up recommendations per his primary care physician Status: Acute (7) Obstructive sleep apnea: Problem details: On home CPAP Status: Acute (8) Morbid obesity: Status: Acute (9) Macrocytic anemia: Problem details: Likely related to marrow toxicity from alcohol consumption Status: Acute (10) Alcoholic hepatitis: Status: Acute (11) Low blood magnesium: Problem details: Replacing with 4 g IV and starting a p.o. supplement Status: Acute Subjective Date Seen: 09/28/22 Interval history: Daily Progress Note - Hospital Medicine Day #: 2 CC: alcoholism, poor self care, afib RVR, alcohol withdrawal OVERNIGHT UPDATES FROM STAFF & MED, LAB, IMAGING UPDATES slept pretty good. needed ativan a couple of times for tremor and anxiety. Vitals reviewed. Heart rate is now much better controlled and no longer in RVR. Hemoglobin is stable MCV 107 Platelets stable 144 PH this morning 7.486 Basic chemistries and renal function are all normal Magnesium is low at 3.1, AST down trended from 64-56 TSH mildly elevated Review of Systems: See subjective Cardiac: No new chest pain/pressure/palpitations. Respiratory: no new dyspnea. GI: No abdominal bloating Objective: Vitals: see above Lungs: Clear. Cardiac: S1S2. Disposition/Potential discharge - Likely to return to previous living situation. Total time is 35 minutes with greater than 50% spent in counseling and coordination of care. Exam Const: Vital Signs, click to edit/add: Vital Signs - 24 hr 09/27/22 15:30 09/27/22 15:33 09/27/22 16:48 Temperature Pulse Rate 139 H 108 H 91 Pulse Rate [Left P ulse Oximeter] Pulse Rate [orthos tatic lying Apical ] Pulse Rate [orthos tatic sitting Apic al] Pulse Rate [orthos tatic standing Api renea] Respiratory Rate Blood Pressure 147/137 H Blood Pressure [Ri ght Arm] Blood Pressure [Ri ght Radial Artery] Blood Pressure [or thostatic sitting Right Arm] Blood Pressure [or thostatic standing Right Arm] Pulse Oximetry 88 93 Oxygen Delivery Me thod 09/27/22 17:07 09/27/22 18:10 09/27/22 16:04 Temperature 99.3 F 99.3 F Pulse Rate Pulse Rate [Left P ulse Oximeter] 111 H 111 H Pulse Rate [orthos tatic lying Apical ] 111 H Pulse Rate [orthos tatic sitting Apic al] 123 H Pulse Rate [orthos tatic standing Api renea] 129 H Respiratory Rate 22 22 Blood Pressure Blood Pressure [Ri ght Arm] 121/94 H Blood Pressure [Ri ght Radial Artery] 121/94 H 121/94 H Blood Pressure [or thostatic sitting Right Arm] 140/80 H Blood Pressure [or thostatic standing Right Arm] 134/90 H Pulse Oximetry 92 92 Oxygen Delivery Me thod Room Air Room Air 09/28/22 07:00 09/27/22 19:25 09/27/22 19:30 Temperature 99 F 99 F Pulse Rate 82 Pulse Rate [Left P ulse Oximeter] 90 90 Pulse Rate [orthos tatic lying Apical ] Pulse Rate [orthos tatic sitting Apic al] Pulse Rate [orthos tatic standing Api renea] Respiratory Rate 18 18 Blood Pressure Blood Pressure [Ri ght Arm] Blood Pressure [Ri ght Radial Artery] 129/84 129/84 Blood Pressure [or thostatic sitting Right Arm] Blood Pressure [or thostatic standing Right Arm] Pulse Oximetry 96 96 Oxygen Delivery Me thod Room Air Room Air 09/27/22 20:15 09/27/22 20:18 09/27/22 21:16 Temperature 99 F 99 F 99 F Pulse Rate Pulse Rate [Left P ulse Oximeter] 90 97 Pulse Rate [orthos tatic lying Apical ] Pulse Rate [orthos tatic sitting Apic al] Pulse Rate [orthos tatic standing Api renea] Respiratory Rate 18 18 Blood Pressure Blood Pressure [Ri ght Arm] Blood Pressure [Ri ght Radial Artery] 129/84 129/84 Blood Pressure [or thostatic sitting Right Arm] Blood Pressure [or thostatic standing Right Arm] Pulse Oximetry 96 96 Oxygen Delivery Me thod Room Air Room Air 09/27/22 22:05 09/27/22 22:44 09/27/22 22:50 Temperature 99 F 98.9 F Pulse Rate Pulse Rate [Left P ulse Oximeter] 91 91 94 Pulse Rate [orthos tatic lying Apical ] Pulse Rate [orthos tatic sitting Apic al] Pulse Rate [orthos tatic standing Api renea] Respiratory Rate 18 20 Blood Pressure Blood Pressure [Ri ght Arm] Blood Pressure [Ri ght Radial Artery] 129/84 123/83 Blood Pressure [or thostatic sitting Right Arm] Blood Pressure [or thostatic standing Right Arm] Pulse Oximetry 98 94 Oxygen Delivery Me thod Room Air Room Air 09/27/22 22:51 09/28/22 02:37 09/28/22 02:39 Temperature 98.9 F 98.9 F 98.9 F Pulse Rate Pulse Rate [Left P ulse Oximeter] 94 80 80 Pulse Rate [orthos tatic lying Apical ] Pulse Rate [orthos tatic sitting Apic al] Pulse Rate [orthos tatic standing Api renea] Respiratory Rate 20 20 20 Blood Pressure Blood Pressure [Ri ght Arm] Blood Pressure [Ri ght Radial Artery] 123/83 147/87 H 147/87 H Blood Pressure [or thostatic sitting Right Arm] Blood Pressure [or thostatic standing Right Arm] Pulse Oximetry 94 94 94 Oxygen Delivery Me thod Room Air Room Air Room Air 09/28/22 05:15 09/28/22 08:40 09/28/22 08:00 Temperature 98.7 F Pulse Rate 98 Pulse Rate [Left P ulse Oximeter] 89 Pulse Rate [orthos tatic lying Apical ] 85 Pulse Rate [orthos tatic sitting Apic al] 91 Pulse Rate [orthos tatic standing Api renea] 124 H Respiratory Rate 22 Blood Pressure Blood Pressure [Ri ght Arm] 137/88 Blood Pressure [Ri ght Radial Artery] 138/92 H Blood Pressure [or thostatic sitting Right Arm] 141/104 H Blood Pressure [or thostatic standing Right Arm] 130/74 Pulse Oximetry 93 Oxygen Delivery Me thod Room Air 09/28/22 08:00 09/28/22 11:00 09/28/22 12:00 Temperature 98.7 F 98.7 F Pulse Rate Pulse Rate [Left P ulse Oximeter] 89 84 84 Pulse Rate [orthos tatic lying Apical ] Pulse Rate [orthos tatic sitting Apic al] Pulse Rate [orthos tatic standing Api renea] Respiratory Rate 22 20 20 Blood Pressure Blood Pressure [Ri ght Arm] Blood Pressure [Ri ght Radial Artery] 123/86 123/86 Blood Pressure [or thostatic sitting Right Arm] Blood Pressure [or thostatic standing Right Arm] Pulse Oximetry 93 93 Oxygen Delivery Me thod Room Air Room Air Labs Labs: Laboratory Results - last 24 hr 09/27/22 09/27/22 09/27/22 11:40 11:40 14:50 WBC RBC Hgb Hct MCV MCH MCHC Plt Count VBG pH VBG pCO2 VBG pO2 VBG HCO3 Sodium Potassium Chloride Carbon Dioxide BUN Creatinine Estimated Creat Clear Estimated GFR Glucose Lactate Calcium Phosphorus Magnesium Total Bilirubin Direct Bilirubin AST ALT Alkaline Phosphatase Troponin I 0.02 NT-Pro-B Natriuret Pep Total Protein Albumin Vitamin B12 415 TSH Urine Color Urine Appearance Urine pH Ur Specific [place] Urine Protein Urine Glucose (UA) Urine Ketones Urine Blood Urine Nitrite Urine Bilirubin Urine Urobilinogen Ur Leukocyte Esterase Urine RBC Urine WBC Ur Squamous Epith Cells Urine Bacteria Digoxin < 0.4 L SARS-CoV-2 (PCR) Negative SARS-CoV-2 09/27/22 09/27/22 09/28/22 16:11 19:12 05:38 WBC 6.32 RBC 3.27 L Hgb 11.6 L Hct 34.9 L MCV 107 H MCH 36 H MCHC 33 Plt Count 144 VBG pH VBG pCO2 VBG pO2 VBG HCO3 Sodium Potassium Chloride Carbon Dioxide BUN Creatinine Estimated Creat Clear Estimated GFR Glucose Lactate 1.5 Calcium Phosphorus Magnesium Total Bilirubin Direct Bilirubin AST ALT Alkaline Phosphatase Troponin I NT-Pro-B Natriuret Pep Total Protein Albumin Vitamin B12 TSH Urine Color Brown A Urine Appearance Clear Urine pH 8.5 Ur Specific [place] 1.015 Urine Protein Trace A Urine Glucose (UA) Negative Urine Ketones Negative Urine Blood Negative Urine Nitrite Negative Urine Bilirubin Negative Urine Urobilinogen 1.0 Ur Leukocyte Esterase Negative Urine RBC 0-2 Urine WBC 0-2 Ur Squamous Epith Cells None Urine Bacteria None Digoxin SARS-CoV-2 (PCR) 09/28/22 09/28/22 09/28/22 05:38 05:38 05:38 WBC RBC Hgb Hct MCV MCH MCHC Plt Count VBG pH 7.486 H VBG pCO2 44 VBG pO2 72.0 H VBG HCO3 33 H Sodium 136 Potassium 3.9 Chloride 99 Carbon Dioxide 31 BUN 13 Creatinine 0.6 Estimated Creat Clear 128.25 Estimated GFR 111 Glucose 90 Lactate 0.8 Calcium 7.7 L Phosphorus 4.2 Magnesium 1.2 L Total Bilirubin 3.1 H Direct Bilirubin 0.0 AST 56 H ALT 29 Alkaline Phosphatase 90 Troponin I 0.02 NT-Pro-B Natriuret Pep 2700 Total Protein 7.1 Albumin 3.4 Vitamin B12 TSH 5.070 H Urine Color Urine Appearance Urine pH Ur Specific [place] Urine Protein Urine Glucose (UA) Urine Ketones Urine Blood Urine Nitrite Urine Bilirubin Urine Urobilinogen Ur Leukocyte Esterase Urine RBC Urine WBC Ur Squamous Epith Cells Urine Bacteria Digoxin SARS-CoV-2 (PCR)
[2022-09-28] MEDS: cefTRIAXone 1 GM in 0.9 % SODIUM CHLORIDE Mini-bag 100 ML IVPB (17:51)
[2022-09-28] MEDS: RIVAROXABAN 10 MG TABLET 20 MG PO (17:51)
[2022-09-28] MEDS: MAGNESIUM OXIDE 400 MG TABLET 800 MG PO (21:02)
[2022-09-29 03:00] VITALS: BP 148/97; PULSE 97; RESP 20; O2SAT 92
[2022-09-29 03:09] VITALS: BP 148/97; PULSE 97; RESP 20; O2SAT 92
--- NOTE | 2022-09-29 06:31 | PC.NURSE ---
15-07: A x 1 with gb and walker. No c/o pain. Pt stated he feels much better. Slight tremors noted in upper extremities. No Ativan needed per CIWA protocol. In the afternoon pt was requiring 2-3L O2 via NC to keep sats >88% as he desated to mid 70s when he was asleep. However, throughout the night pt was on RA and maintained sats >88% when he was asleep. Mepi to buttocks CDI. Tele = A fib.
[2022-09-29 06:52] LABS: Ionized Calcium* 1.08 mmol/L (1.11-1.30)
[2022-09-29 06:59] LABS: Hematocrit 34.6 % (37.0-53.0); Hemoglobin* 11.2 gm/dL (13.5-17.5); Mean Corpuscular HGB Conc 32 gm/dL (32-36); Mean Corpuscular Hemoglobin 35 pg (26-34); Mean Corpuscular Volume 108 fL (80-100); Platelet Count* 134 K/uL (140-440); Red Blood Count 3.21 m/uL (4.30-5.90)
[2022-09-29 07:00] VITALS: BP 130/87; PULSE 77; PULSE 95; RESP 20; TEMP 36.9; O2SAT 95
[2022-09-29 07:04] LABS: Slide Review Reflex No
[2022-09-29 07:28] LABS: Albumin* 3.3 g/dL (3.3-5.0); Chloride* 102 mmol/L (96-114)
[2022-09-29 07:29] LABS: Potassium* 3.8 mmol/L (3.6-5.1); Sodium* 134 mmol/L (135-149)
[2022-09-29 07:30] LABS: Iron* 89 ug/dL (49-181)
[2022-09-29 07:31] LABS: Alkaline Phosphatase* 83 U/L (40-150); Aspartate Amino Transferase* 43 U/L (12-35); Bilirubin Total* 2.5 mg/dL (0.1-1.5); Carbon Dioxide* 30 mmol/L (20-32); Creatinine* 0.6 mg/dL (0.5-1.5); Est. Creatinine Clearance* 128.25; Estimated Glomerular Filt Rate 111 ml/min; Lipase* 45 U/L (23-300); Total Protein* 6.9 g/dL (6.0-8.3)
[2022-09-29 07:32] LABS: Alanine Aminotransferase* 25 U/L (4-50); Blood Urea Nitrogen* 15 mg/dL (7-30); Glucose* 78 mg/dL (60-115); Magnesium* 1.9 mg/dL (1.5-2.6)
[2022-09-29 07:34] LABS: C Reactive Protein* 2.8 mg/dL (0.5-1.0)
[2022-09-29 07:39] LABS: Percent Iron Saturation 32 % (20-50); Total Iron Binding Capacity 275 ug/dL (261-462)
[2022-09-29 08:00] VITALS: BP 130/87; PULSE 77; RESP 20; TEMP 36.9; O2SAT 95
[2022-09-29] MEDS: MAGNESIUM OXIDE 400 MG TABLET 800 MG PO (08:27)
[2022-09-29] MEDS: ESCITALOPRAM 10 MG TABLET 30 MG PO (08:27)
[2022-09-29] MEDS: lisinopriL 10 MG TABLET PO (08:28)
[2022-09-29] MEDS: FOLIC ACID 1 MG TABLET PO (08:28)
[2022-09-29 08:29] VITALS: PULSE 77
[2022-09-29] MEDS: DIGOXIN 125 MCG TABLET PO (08:29)
[2022-09-29] MEDS: MULTIVITAMIN/MINERALS 1 TABLET 1 TAB PO (08:29)
[2022-09-29] MEDS: GABAPENTIN 300 MG CAPSULE PO (08:29)
[2022-09-29] MEDS: THIAMINE 250 MG in 0.9 % SODIUM CHLORIDE 100 ml 100 ML 102.5 MG IVPB (08:30)
[2022-09-29] MEDS: SODIUM CHLORIDE 0.9 % (FLUSH) 10 ML SYRINGE 5 ML IVF (08:30)
[2022-09-29] MEDS: METOPROLOL SUCCINATE (XL) 100 MG TAB PO (08:56)
--- NOTE | 2022-09-29 12:01 | PC.NURSE ---
Discharge note: Pt a/o and able to verbalize needs. Very pleasant mood this morning, verbalizing he was looking forward to working with PT. VS WNL and LS COA. Afebrile. CIWA= 5, no Ativan required. Thiamine and Mag IVPB, pt refusing Lactulose d/t undesired outcome of loose stools and MD aware. Moves well with SBA. Pt was discharged to home via wheelchair in the care of a friend at 1150. Pt verbalized understanding of discharge instructions and follow up appointments.
--- NOTE | 2022-09-29 15:48 | PM.DS1 ---
DS: Providers Provider Date Seen: 09/29/22 Date of admission: 09/27/22 15:35 Primary care physician: Rolf Stauffer MD Admitting Clinician: Stuart Sanabria MD Consults: 09/27/22 15:59 Consult to Physical Therapy [CONS] Routine Comment: Reason(s) for PT Consult:: Evaluate and Treat Any Restrictions?:: No Restrictions 09/27/22 16:03 Consult to Occupational Therapy [CONS] Routine Comment: Reason(s) for OT Consult:: Evaluate and Treat Any Restrictions?:: No Restrictions 09/27/22 17:43 Consult to Occupational Therapy [CONS] Routine Comment: Reason(s) for OT Consult:: Evaluate and Treat Any Restrictions?:: Unknown Consult to Physical Therapy [CONS] Routine Comment: Reason(s) for PT Consult:: Evaluate and Treat Any Restrictions?:: Unknown Attending Physician on discharge: Salina Rojas MD [facility] Hospitalist Date of Discharge: 09/29/22 DS: Diagnosis Discharge Diagnosis (1) Alcohol use disorder: Status: Acute Problem details: Lifestyle changes are needed. Patient does not really have the insight or motivation necessary. Challenged during today's discharge to follow-up with a a and enter treatment. (2) Alcohol withdrawal: Status: Acute Problem details: This hospitalization was not ivette. He did receive 1 dose of IV phenobarbital and had Ativan. He was coherent today on 09/29/2022. (3) Paroxysmal atrial fibrillation: Status: Acute Problem details: h/o recurrent A Fib s/p ablation and on amiodarone 07/2011. Now anticoagulated with apixaban and rate controlled with metoprolol succinate. (4) Atrial fibrillation with RVR: Status: Acute Problem details: Much improved. Rate is controlled when on his prescribed medications. (5) Low blood magnesium: Status: Acute Problem details: Replaced with 4 g IV and sending him home on oral replacement. (6) Accidental fall: Status: Acute Problem details: Patient fell at home and was too weak to get up. His ex- checked on him because he did not answer his phone. No specific injury. DS: Summary Hospital Course Hospital Course: HOSPITALIST DISCHARGE SUMMARY ATTENDING PHYSICIAN: Salina Rojas MD FINAL DIAGNOSIS: Alcohol use disorder Acute intoxication, weak, poor self-care Alcohol withdrawal Hypomagnesemia HOSPITAL FOLLOWUP ISSUES: Substance abuse treatment either with outpatient AA or inpatient treatment center. PCP follow-up for electrolyte abnormalities, paroxysmal AFib and other chronic conditions REFERRALS WHILE ADMITTED: PT and OT REFERRALS AFTER DISCHARGE: Substance abuse treatment BRIEF HOSPITAL COURSE: Evin came in intoxicated, found down and weak. She responded to IV fluids and restarting his home medications. His rate was easily controlled. He had a low magnesium. This was replaced. He had mild withdrawal. He wanted to go home on 09/29/2022 felt he had a decent plan with associating with friends who drink. I explained I thought he lacked insight and should consider inpatient treatment. SUBSTANTIVE NOTATIONS ON IMAGING, LAB, MICROBIOLOGY/PATHOLOGY STUDIES: Urine culture was negative Imaging negative Labs as expected DISCHARGE MEDICATIONS: See Reconciled list - SIGNIFICANT CHANGES: None REVIEW OF SYSTEMS No new chest pain or dyspnea Pain controlled No voiding difficulties Tolerating diet challenge PHYSICAL EXAM: CONSTITUTIONAL: Alert. Less tremulous. VITAL SIGNS: see record. HEENT: Normocephalic, atraumatic. PERRL, EOMI, conjunctivae pink, no scleral icterus. Ears and nose externally normal. Pharynx normal. NECK: No JVD. No carotid bruit, no thyromegaly, no adenopathy. CHEST: Clear to auscultation bilaterally. HEART: S1 and S2 normal. Edema minimal ABDOMEN: Soft, nontender. Normal bowel sounds. MUSCULOSKELETAL: No gross joint deformity or swelling. NEURO: Cranial nerves intact. Grossly intact. No asymmetric findings. SKIN: No rashes, petechiae, concerning changes PSYCHIATRIC: Mood euthymic. DISPOSITION: Home with sober, nondrinking friend. Time spent on discharge 37 minutes. Time Spent with Patient Time attestation: Total time spent providing and/or coordinating discharge services: Exam Const: Vital Signs, click to edit/add: Vital Signs - 24 hr 09/28/22 16:00 09/28/22 19:00 09/28/22 20:00 Temperature 98 F 98 F 98 F Pulse Rate Pulse Rate [Left P ulse Oximeter] 86 93 93 Respiratory Rate 20 20 20 Blood Pressure [Le ft Arm] 129/92 H 150/102 H 150/102 H Pulse Oximetry 96 93 93 Oxygen Delivery Me thod Room Air Room Air Room Air 09/28/22 23:00 09/28/22 23:00 09/28/22 23:00 Temperature 98.2 F Pulse Rate 91 Pulse Rate [Left P ulse Oximeter] 91 90 Respiratory Rate 20 20 Blood Pressure [Le ft Arm] 148/98 H Pulse Oximetry 93 Oxygen Delivery Me thod Room Air 09/28/22 23:22 09/29/22 03:00 09/29/22 03:09 Temperature 98.2 F Pulse Rate Pulse Rate [Left P ulse Oximeter] 90 97 97 Respiratory Rate 20 20 20 Blood Pressure [Le ft Arm] 148/98 H 148/97 H 148/97 H Pulse Oximetry 93 92 92 Oxygen Delivery Me thod Room Air Room Air Room Air 09/29/22 08:29 09/29/22 07:00 09/29/22 07:00 Temperature Pulse Rate 77 77 Pulse Rate [Left P ulse Oximeter] 95 Respiratory Rate 20 Blood Pressure [Le ft Arm] Pulse Oximetry Oxygen Delivery Me thod 09/29/22 07:00 09/29/22 08:00 Temperature 98.4 F 98.4 F Pulse Rate Pulse Rate [Left P ulse Oximeter] 77 77 Respiratory Rate 20 20 Blood Pressure [Le ft Arm] 130/87 130/87 Pulse Oximetry 95 95 Oxygen Delivery Me thod Room Air Room Air DS: Data Data Completed and Pending Completed studies during hospitalization: Procedures Detoxification Services for Substance Abuse Treatment (09/02/22) Labs on day of discharge: Labs from last 24 hours 09/29/22 09/29/22 09/29/22 05:45 05:45 05:45 WBC RBC Hgb Hct MCV MCH MCHC Plt Count Sodium Potassium Chloride Carbon Dioxide BUN Creatinine Estimated Creat Clear Estimated GFR Glucose Calcium Ionized Calcium Sandeep 1.08 L Magnesium Iron 89 TIBC 275 % Saturation 32 Ferritin 409.0 Total Bilirubin AST ALT Alkaline Phosphatase C-Reactive Protein Total Protein Albumin Lipase 09/29/22 09/29/22 05:45 05:45 WBC 6.70 RBC 3.21 L Hgb 11.2 L Hct 34.6 L MCV 108 H MCH 35 H MCHC 32 Plt Count 134 L Sodium 134 L Potassium 3.8 Chloride 102 Carbon Dioxide 30 BUN 15 Creatinine 0.6 Estimated Creat Clear 128.25 Estimated GFR 111 Glucose 78 Calcium 8.0 L Ionized Calcium Sandeep Magnesium 1.9 Iron TIBC % Saturation Ferritin Total Bilirubin 2.5 H AST 43 H ALT 25 Alkaline Phosphatase 83 C-Reactive Protein 2.8 H Total Protein 6.9 Albumin 3.3 Lipase 45 Preliminary micro results at discharge 09/27/22 15:55 Blood Culture - Preliminary Blood NO GROWTH AFTER 24 HOURS 09/27/22 16:11 Blood Culture - Preliminary Blood NO GROWTH AFTER 24 HOURS Discharge Plan Discharge Disposition: Home, Self-Care Date of Admission: 09/27/22 15:35 Attending Provider on Discharge: Salina Rojas Primary Care Provider: Rolf Stauffer Condition: Unchanged Anticipated Discharge Date/Time: 09/29/22 10:16 Discharge Medications: New magnesium oxide 400 mg (241.3 mg magnesium) Tablet 800 mg PO BID Qty: 120 0RF folic acid 1 mg Tablet 1 mg PO DAILY Qty: 90 3RF Continued metoprolol succinate 100 mg tablet extended release 24 hr 100 mg PO BID lisinopril 10 mg tablet 10 mg PO DAILY escitalopram oxalate 10 mg tablet 10 mg PO DAILY Label Comments: total dose = 30mg daily escitalopram oxalate 20 mg tablet 20 mg PO DAILY Label Comments: total dose = 30 mg daily Xarelto 20 mg tablet 20 mg PO DAILY acetaminophen 325 mg Tablet 650 mg PO Q6H PRNQty: 100 0RF lactulose 20 gram/30 mL Solution 20 g PO DAILY Qty: 900 0RF multivitamin with folic acid [Thera] 400 mcg Tablet 1 tab PO DAILY Qty: 100 0RF digoxin 250 mcg (0.25 mg) tablet 125 mcg PO DAILY Qty: 30 0RF Discharge Orders: Discharge Order (Routine); Ordered 09/29/22 Ordered By: Salina Rojas Patient Education: Acute Kidney Injury (DC), Depression (DC), Alcohol Intoxication (DC), Abuse of Alcohol (DC), Acute Nausea and Vomiting (DC), Alcohol Withdrawal (DC), Fall Prevention (DC), Hypernatremia (DC), Alcohol Dependence (DC), Alcohol Use Disorder (DC) Additional Instructions: If you keep drinking, you will . Alcoholic liver failure is a miserable . You can't sip or cut back - no further drinking. Follow-up with AA, Follow-up with treatment. Take your medications as directed, eat a healthy diet f/u with your PCP Activity Level: Activity as Tolerated Discharge Diet: Regular Follow Up Appointments: Rolf Stauffer MD [Primary Care Provider] - 10/02/22 8:25 am (Follow up Appointment with at [facility].) Forms: [employer] Info Instructions
[2022-09-29 19:16] LABS: Folate, Serum 7.2 ng/mL (>=5.9)
== END 2022-09-29 12:05 | disposition home or self-care (01) ==
LOC: ED 14:31 → MEDSURG 15:36
PROVIDERS: Family Medicine; Admitting Provider Internal Medicine; Emergency Provider Emergency Medicine Emergency Medical Services; PCP Family Medicine; Visit Provider Internal Medicine
DX: I95.1 Orthostatic hypotension (principal); E86.0 Dehydration; F10.929 Alcohol use, unspecified with intoxication, unspecified; F10.939 Alcohol use, unspecified with withdrawal, unspecified; F19.90 Other psychoactive substance use, unspecified, uncomplicated; I48.91 Unspecified atrial fibrillation; R53.1 Weakness; R26.89 Other abnormalities of gait and mobility; I48.0 Paroxysmal atrial fibrillation; I42.9 Cardiomyopathy, unspecified; G47.33 Obstructive sleep apnea (adult) (pediatric); E66.01 Morbid (severe) obesity due to excess calories; D53.9 Nutritional anemia, unspecified; K70.10 Alcoholic hepatitis without ascites; R82.71 Bacteriuria; R79.0 Abnormal level of blood mineral; W19.XXXA Unspecified fall, initial encounter
CPT/HCPCS: 36415; 80048; 80053; 80076; 80162; 81003; 81015; 82077; 82330; 82550; 82607; 82728; 82746; 82803; 83540; 83550; 83605; 83690; 83735; 83880; 84100; 84443; 84484; 85025; 85027; 86140; 87040; 87086; 87635; 93005; 93306; 96361; 96365; 96366; 96367; 96368; 96375; 96376; 97116; 97161; 97165; 97530; 97535; 99285; G0378; A9153; A9270; G0379; J0610; J0696; J2060; J2560; J3411; J3475; J7030

== ENCOUNTER 2022-11-14 08:26 | Outpatient (CLI) | payer MEDICARE, BC, SELFPAY | END 2022-11-14 08:27 | disposition home or self-care (01) | LOC: AMB 11-25 01:30 | PROVIDERS: PCP Family Medicine; Visit Provider Family Medicine | DX: I46.9 Cardiac arrest, cause unspecified (principal) ==